=== PATIENT | female | born 1925 | race African-American/Black ===

== ENCOUNTER 2017-04-28 13:37 | Observation (INO) | payer OTHER, BC ==
[2017-04-28 13:58] VITALS: BMI 24.7
--- NOTE | 2017-04-28 15:17 | PDOC ---
History of Present Illness - General History Source: Patient Exam Limitations: No Limitations - History of Present Illness Initial Comments: 04/28/17 16:23 The patient is a 89-year-old female living with son, with a significant past medical history of HTN, diabetes, and hypercholesterolemia, pacemaker, who presents to the ED with one episode of weakness accompanied by a change in speech that occurred today at 1PM. Daughter states that pt was at home with her brother and he noted the pt was slumped over in couch. He tried to get the pt up from the couch but was able to because the pt felt weak. Pts was also noted to be talking slower than usual. Upon examination, daughter states that the pt appears to be at baseline. Pt has experienced similar episodes in the past that resolved. The patient denies any fever, chills, nausea, vomiting, diarrhea, or abdominal pain. Pt denies any headache or change in sensation. Pt denies any shortness of breath or chest pain. Denies any hx of seizures, stroke, or CA. PCP: Dr. Crouch <Michell Hernandez - Last Filed: 04/28/17 16:23> <Yesenia Crespo - Last Filed: 04/29/17 16:55> - General Chief Complaint: Lightheaded Stated Complaint: light headed Time Seen by Provider: 04/28/17 14:31 tPA Exclusion Checklist 0-3hr - Time Elapsed Date last known well: 04/28/17 Time last known well: 13:00 Elaspsed time: 1 Day(s) and 3 Hour(s) and 53 Minutes - Thrombolytic Therapy Candidate Is the patient eligible for Thrombolytic Therapy?: No - Exclusion Criteria 0-3hr SBP greater than 185 or DBP greater than 110mmHg despite tx: No Recent IC/spinal surgery,head trauma or stroke w/in last 3mo: No Hx of previous IC hemorrhage, IC neoplasm, AVM or aneurysm: No Active internal bleeding: No Blding diathesis(low plt ct, inc PTT,INR>1.7 or use of NOAC): No Symptoms suggest subarachnoid hemorrhage: No CT demonstrates multilobar infarct(>1/3 cerebral hemiphere): No Arterial puncture at noncompressible site in previous 7 days: No Blood glucose concentration less than 50mg/dL (2.7mmol/L): No - Relative Exclusion Criteria 0-3h Life expectancy <1yr/severe co-morbid illness/[employer] on admit: No : No Patient/family refused: No Rapid improvement: Yes Stroke severity too mild: Yes Recent acute CA (w/in previous 3 months): No Seizure at onset with postictal residual neuro impairments: No Major surgery or serious trauma w/in previous 14 days: No Recent GI or hemorrhage (w/in previous 21 days): No - Ineligibility reason(s) Reasons No tPA given: See reason(s) noted above (TIA, complete resolution of sxs on initial ED eval.) <Yesenia Crespo - Last Filed: 04/29/17 16:55> NIH Stroke Scale - Last Known Well Date/Time & Onset Date Last Known Well: 04/28/17 Time Last Known Well: 13:00 - Initial Evaluation Level of consciousness: Alert Ask patient the month and their age: Answers both correctly Ask patient to open & close eyes; make fist and let go: Obeys both correctly Best gaze (horizontal eye movement): Normal Visual field testing: No visual field loss Facial paresis (Show teeth/raise eyebrows/close eyes tight): Normal symmetrical movement Motor Function: Left Arm: Normal Motor Function: Right Arm: Normal (extends arm 90 (or 45) degrees for 10 seconds without drift Motor Function: Left Leg: Normal (extends leg 30 degrees for 5 seconds without drift) Motor Function: Right Leg: Normal (extends leg 30 degrees for 5 seconds without drift) Limb Ataxia: No ataxia Sensory(Use pinprick test arms,legs,trunk,face/side to side): Normal Best language (Describe picture, name items, read sentences): No Aphasia Dysarthria (read several words): Normal articulation Extinction and Inattention: No abnormality - Total Score NIH Stroke Scale Score: 0 <Yesenia Crespo - Last Filed: 04/29/17 16:55> Past History <Michell Hernandez - Last Filed: 04/28/17 16:23> - Past Medical History Diabetes: Yes HTN: Yes Hypercholesterolemia: Yes - Surgical History Appendectomy: Yes Cholecystectomy: Yes - Psycho/Social/Smoking Cessation Hx Anxiety: No Suicidal Ideation: No Smoking Status: No Smoking History: Never smoked Have you smoked in the past 12 months: No Number of Cigarettes Smoked Daily: 0 Information on smoking cessation initiated: No Hx Alcohol Use: No Drug/Substance Use Hx: No Substance Use Type: None <NikoleYesenia samuels - Last Filed: 04/29/17 16:55> - Past Medical History Allergies/Adverse Reactions: Allergies Allergy/AdvReac Type Severity Reaction Status Date / Time codeine AdvReac Intermediate Verified 04/28/17 13:53 Home Medications: Ambulatory Orders Alendronate Na [Fosamax] 70 mg PO Q7D 04/28/17 Calcium (Oyster Shell) [Os-Vineet 500Mg -] 500 mg PO BID 04/28/17 Carvedilol 3.125 mg PO BID 04/28/17 Citalopram Hydrobromide [Citalopram HBr] 10 mg PO DAILY 04/28/17 Darifenacin Hydrobromide [Darifenacin ER] 7.5 mg PO DAILY 04/28/17 Donepezil HCl 5 mg PO DAILY 04/28/17 Fluticasone Prop 0.05% Nasal [Flonase -] 1 - 2 spray NS BID 04/28/17 Glipizide [Glipizide ER] 2.5 mg PO DAILY 04/28/17 Haloperidol [Haldol -] 0.5 mg PO BID 04/28/17 Losartan Potassium 50 mg PO DAILY 04/28/17 Metformin HCl [Metformin HCl ER] 1,000 mg PO BID 04/28/17 Multivitamins [Tab-A-Vit -] 1 tab PO DAILY 04/28/17 Nitroglycerin 0.4 mg SL ASDIR 04/28/17 Potassium Chloride [Klor-Con 10] 10 meq PO DAILY 04/28/17 Review of Systems - Review of Systems Able to Perform ROS?: Yes Comments:: 04/28/17 16:24 GENERAL/CONSTITUTIONAL: No fever or chills. +weakness HEAD, EYES, EARS, NOSE AND THROAT: No change in vision. No ear pain or discharge. No sore throat. CARDIOVASCULAR: No chest pain or shortness of breath. RESPIRATORY: No cough, wheezing, or hemoptysis. SKIN: No rash GASTROINTESTINAL: No nausea, vomiting, diarrhea or constipation. GENITOURINARY: No dysuria, frequency, or change in urination. MUSCULOSKELETAL: No joint or muscle swelling or pain. No neck or back pain. NEUROLOGIC: No headache, vertigo, loss of consciousness, or change in strength/ sensation. +change in speech ENDOCRINE: No increased thirst. No abnormal weight change. HEMATOLOGIC/LYMPHATIC: No anemia, easy bleeding, or history of blood clots. ALLERGIC/IMMUNOLOGIC: No hives or skin allergy. <Michell Hernandez - Last Filed: 04/28/17 16:23> *Physical Exam - Vital Signs Last Vital Signs Temp Pulse Resp BP Pulse Ox 97.5 F L 78 18 156/88 100 04/28/17 15:11 04/28/17 13:40 04/28/17 13:40 04/28/17 13:40 04/28/17 13:40 - Physical Exam Comments: 04/28/17 16:25 GENERAL: Awake, alert, and fully oriented, in no acute distress HEAD: No signs of trauma ENT: Auricles normal inspection, hearing grossly normal, nares patent, oropharynx clear EYES: PERRLA, EOMI, sclera anicteric, conjunctiva clear without exudates. Moist mucosa. NECK: Normal ROM, supple, no lymphadenopathy, JVD, or masses LUNGS: Breath sounds equal, clear to auscultation bilaterally. No wheezes, and no crackles HEART: Regular rate and rhythm, normal S1 and S2, no murmurs, rubs or gallops ABDOMEN: Soft, nontender, normoactive bowel sounds. No guarding, no rebound. No masses EXTREMITIES: Normal range of motion, no edema. No clubbing or cyanosis. No cords, erythema, or tenderness NEUROLOGICAL: Cranial nerves II through XII grossly intact. Normal speech. Good strength. Sensation intact. SKIN: Warm, Dry, normal turgor, no rashes or lesions noted <DavidMichell - Last Filed: 04/28/17 16:23> - Vital Signs Last Vital Signs Temp Pulse Resp BP Pulse Ox 95.5 F L 78 18 156/88 100 04/28/17 14:36 04/28/17 13:40 04/28/17 13:40 04/28/17 13:40 04/28/17 13:40 <Yeseina Crespo - Last Filed: 04/29/17 16:55> ED Treatment Course - LABORATORY CBC & Chemistry Diagram: 04/29/17 05:35 04/29/17 05:35 <Yesenia Crespo - Last Filed: 04/29/17 16:55> Medical Decision Making - Medical Decision Making 04/28/17 15:17 89 yo F with h/o DM HTN, pacer, herre with episode of weakness, change to speech. occurred around 1 pm, per pt daughter who provides majority of history, pt lives with her son. was noted to suddently have slumped over in couch, when tried to get her up they couldn't due to pt having weakness. slumpted to left side. noted her speech was changed, and slow. now pt has improved and is at baseline. no prior cva. has had similar episodes in past that resolved. no change to diet, normally walks with a cane. no cp no sob no other complaints. on exam awake, alert, facies symmetric, strength speech clear NIH stroke scale zero. 5/5 all four ext. plan r/o tia, ct head labs ekg nuero eval. 04/28/17 15:46 d/w DR Crouch, pt pcp [phone] who states his partner cal admit her dr. Oliver. no prior known cva tia or seizure. did have recent UTI one month. ago. d/w dr. Oliver, will admit to tel. case d/w dr. Bentley, will see pt in ed. <Yesenia Crespo - Last Filed: 04/29/17 16:55> *DC/Admit/Observation/Transfer - Attestations Scribe Attestion: 04/28/17 16:26 Documentation prepared by Michell Hernandez, acting as medical social worker for Yesenia Crespo MD. <Michell Hernandez - Last Filed: 04/28/17 16:23> - Discharge Dispostion Admit: Yes <Yesenia Crespo - Last Filed: 04/29/17 16:55> Diagnosis at time of Disposition: TIA (transient ischemic attack)
[2017-04-28 17:02] LABS: BASOPHIL 0.3 % (0-2.0); EOSINOPHIL 1.2 % (0-4.5); MCH 29.6 pg (25.7-33.7); MCHC 31.5 g/dl (32.0-36.0); MEAN CELL VOLUME 94.2 fl (80-96); MEAN PLT VOLUME 9.2 fl (7.5-11.1); NEUTROPHILS 79.3 % (42.8-82.8); PLATELET COUNT 257 K/MM3 (134-434); RDW 15.7 % (11.6-15.6); WHITE BLOOD COUNT 14.8 K/mm3 (4.0-10.0)
[2017-04-28 18:00] LABS: INR 0.94 (0.82-1.09); PROTHROMBIN TIME (PATIENT) 10.3 SEC (9.98-11.88)
--- NOTE | 2017-04-28 18:42 | HP ---
Admitting History and Physical - Primary Care Physician PCP: Tee Crouch - Admission Chief Complaint: weakness/near syncope History of Present Illness: Today around 12.30 pt got very weak, kind of slumped over, son tried to get her up, but she was too weak and her speech was slower. No slurred speech, no LOC, no palpitation or chest pain noted. Episode lasted no more than one-one and a half hour. Denies recent cold, infection, fever or chills. History Source: Patient, Family Member Limitations to Obtaining History: No Limitations - Past Medical History PROJECT GEOLOGIST: Yes: Dementia Cardiovascular: Yes: CAD, HTN, Hyperlipdemia Rheumatology: Yes: Other (PMR-was on steroids in past) Endocrine: Yes: Diabetes Mellitus - Past Surgical History Past Surgical History: Yes: CABG (2007), Permanent Pacemaker - Smoking History Smoking history: Never smoked Have you smoked in the past 12 months: No Aproximately how many cigarettes per day: 0 - Alcohol/Substance Use Hx Alcohol Use: No - Social History Usual Living Arrangement: Yes: With Child ADL: Family Assistance History of Recent Travel: No Other Social History: walks with cane or walker. Home Medications - Allergies Allergies/Adverse Reactions: Allergies Allergy/AdvReac Type Severity Reaction Status Date / Time codeine AdvReac Intermediate Verified 04/28/17 13:53 - Home Medications Home Medications: Ambulatory Orders Alendronate Na [Fosamax] 70 mg PO Q7D 04/28/17 Calcium (Oyster Shell) [Os-Vineet 500Mg -] 500 mg PO BID 04/28/17 Carvedilol 3.125 mg PO BID 04/28/17 Citalopram Hydrobromide [Citalopram HBr] 10 mg PO DAILY 04/28/17 Darifenacin Hydrobromide [Darifenacin ER] 7.5 mg PO DAILY 04/28/17 Donepezil HCl 5 mg PO DAILY 04/28/17 Fluticasone Prop 0.05% Nasal [Flonase -] 1 - 2 spray NS BID 04/28/17 Glipizide [Glipizide ER] 2.5 mg PO DAILY 04/28/17 Haloperidol [Haldol -] 0.5 mg PO BID 04/28/17 Losartan Potassium 50 mg PO DAILY 04/28/17 Metformin HCl [Metformin HCl ER] 1,000 mg PO BID 04/28/17 Multivitamins [Tab-A-Vit -] 1 tab PO DAILY 04/28/17 Nitroglycerin 0.4 mg SL ASDIR 04/28/17 Potassium Chloride [Klor-Con 10] 10 meq PO DAILY 04/28/17 Family Disease History - Family Disease History Family Disease History: Heart Disease: Mother Review of Systems Findings/Remarks: no without complaints, feels back to usual. - Review of Systems Constitutional: reports: No Symptoms Eyes: reports: No Symptoms HENT: reports: No Symptoms Neck: reports: No Symptoms Cardiovascular: reports: No Symptoms Respiratory: reports: No Symptoms Gastrointestinal: reports: No Symptoms Genitourinary: reports: No Symptoms Musculoskeletal: reports: No Symptoms Integumentary: reports: No Symptoms Neurological: reports: No Symptoms Endocrine: reports: No Symptoms Hematology/Lymphatic: reports: No Symptoms Psychiatric: reports: No Symptoms Physical Examination Vital Signs: Vital Signs Temperature 97.5 F L 04/28/17 15:11 Pulse Rate 78 04/28/17 13:40 Respiratory Rate 18 04/28/17 13:40 Blood Pressure 156/88 04/28/17 13:40 O2 Sat by Pulse Oximetry (%) 100 04/28/17 13:40 Constitutional: Yes: Well Nourished, Calm Eyes: Yes: EOM Intact HENT: Yes: Normocephalic Neck: Yes: Trachea Midline Cardiovascular: Yes: Regular Rate and Rhythm, Murmur, Other (PPM) Respiratory: Yes: CTA Bilaterally Gastrointestinal: Yes: Normal Bowel Sounds, Soft Musculoskeletal: Yes: WNL Extremities: Yes: WNL Edema: No Peripheral Pulses WNL: Yes Neurological: Yes: WNL Psychiatric: Yes: WNL Labs: CBC WBC 14.8 K/mm3 (4.0-10.0) H D 04/28/17 15:19 RBC 3.99 M/mm3 (3.60-5.2) 04/28/17 15:19 Hgb 11.8 GM/dL (10.7-15.3) 04/28/17 15:19 Hct 37.6 % (32.4-45.2) 04/28/17 15:19 MCV 94.2 fl (80-96) 04/28/17 15:19 MCHC 31.5 g/dl (32.0-36.0) L 04/28/17 15:19 RDW 15.7 % (11.6-15.6) H 04/28/17 15:19 Plt Count 257 K/MM3 (134-434) 04/28/17 15:19 MPV 9.2 fl (7.5-11.1) 04/28/17 15:19 Neutrophils % 79.3 % (42.8-82.8) 04/28/17 15:19 Lymphocytes % 11.5 % (8-40) 04/28/17 15:19 Monocytes % 7.7 % (3.8-10.2) D 04/28/17 15:19 Eosinophils % 1.2 % (0-4.5) 04/28/17 15:19 Basophils % 0.3 % (0-2.0) D 04/28/17 15:19 CMP hemolyzed, needs to be redrawn. Imaging - Results Chest X-ray: Report Reviewed Cat Scan: Report Reviewed Problem List - Problems (1) TIA (transient ischemic attack) Code(s): G45.9 - TRANSIENT CEREBRAL ISCHEMIC ATTACK, UNSPECIFIED (2) Near syncope Code(s): R55 - SYNCOPE AND COLLAPSE (3) CAD (coronary artery disease) Code(s): I25.10 - ATHSCL HEART DISEASE OF [place] CORONARY ARTERY W/O ANG PCTRS (4) Diabetes Code(s): E11.9 - TYPE 2 DIABETES MELLITUS WITHOUT COMPLICATIONS Qualifiers: Diabetes mellitus type: type 2 Assessment/Plan echo carotid telemetry awaiting UA neurology and cardiology evaluation requested
[2017-04-28 18:43] LABS: URINE APPEARANCE CLEAR; URINE BILIRUBIN NEGATIVE (NEGATIVE); URINE BLOOD NEGATIVE (NEGATIVE); URINE COLOR LTYELLOW; URINE GLUCOSE (UA) NEGATIVE (NEGATIVE); URINE KETONE NEGATIVE (NEGATIVE); URINE NITRITE NEGATIVE (NEGATIVE); URINE PROTEIN NEGATIVE (NEGATIVE); URINE UROBILINOGEN NEGATIVE E.U./dl (0.2-1.0)
[2017-04-28 18:51] LABS: URINE LEUK ESTERASE TRACE (NEGATIVE)
[2017-04-28 18:54] LABS: URINE BACTERIA RARE /hpf (NONE SEEN); URINE MUCUS RARE; URINE RBC 4 /hpf (0-3); URINE WBC 2 /hpf (3-5)
[2017-04-28 19:47] LABS: ALBUMIN 3.4 g/dl (3.4-5.0); BILIRUBIN,TOTAL 0.1 mg/dL (0.2-1.0); CALCIUM 8.8 mg/dL (8.5-10.1); COCKROFT - GAULT 29.41; CREATININE 1.3 mg/dL (0.55-1.02); TOT PROT 6.7 g/dl (6.4-8.2)
[2017-04-28] MEDS: CALCIUM (OYSTER SHELL) 500 MG TABLET (FP) PO SCH (22:04)
[2017-04-28] MEDS: CARVEDILOL 3.125 MG TABLET (FP) PO SCH (22:04)
[2017-04-28] MEDS: HALOPERIDOL 0.5 MG TABLET PO SCH (22:04)
[2017-04-29] MEDS: metFORMIN HCL 500 MG TABLET (FP) PO SCH ×2 (06:26→17:23)
[2017-04-29] MEDS: glipiZIDE-XL 2.5 MG TAB.ER.24 PO SCH (06:26)
[2017-04-29 07:14] LABS: BASOPHIL 0.8 % (0-2.0); EOSINOPHIL 3.8 % (0-4.5); MCH 30.3 pg (25.7-33.7); MCHC 32.6 g/dl (32.0-36.0); MEAN CELL VOLUME 92.9 fl (80-96); MEAN PLT VOLUME 8.5 fl (7.5-11.1); NEUTROPHILS 54.4 % (42.8-82.8); PLATELET COUNT 222 K/MM3 (134-434); RDW 15.5 % (11.6-15.6); WHITE BLOOD COUNT 6.5 K/mm3 (4.0-10.0)
[2017-04-29 07:50] LABS: ALBUMIN 3.5 g/dl (3.4-5.0); BILIRUBIN,TOTAL 0.3 mg/dL (0.2-1.0); CALCIUM 9.3 mg/dL (8.5-10.1); COCKROFT - GAULT 30.7615; CREATININE 1.2 mg/dL (0.55-1.02); TOT PROT 6.6 g/dl (6.4-8.2); TROPONIN I 0.06 ng/ml (0.00-0.05)
[2017-04-29] MEDS ORDERED: PT OWN MED DRAWER 7, Y5N ONE ×2 (08:54→20:57)
[2017-04-29] MEDS: MULTIVITAMINS (DAILY MVI) TABLET (FP) PO SCH (09:07)
[2017-04-29] MEDS: CARVEDILOL 3.125 MG TABLET (FP) PO SCH ×2 (09:07→21:03)
[2017-04-29] MEDS: DONEPEZIL HCL 5 MG TABLET (FP) PO SCH (09:07)
[2017-04-29] MEDS: CITALOPRAM HYDROBROMIDE 10 MG TABLET (FP) PO SCH (09:07)
[2017-04-29] MEDS: LOSARTAN POTASSIUM 50 MG TABLET (FP) PO SCH (09:07)
[2017-04-29] MEDS: POTASSIUM CHLORIDE TABS 10 MEQ TABLET.ER (FP) PO SCH (09:07)
[2017-04-29] MEDS: CALCIUM (OYSTER SHELL) 500 MG TABLET (FP) PO SCH ×2 (09:07→21:03)
[2017-04-29] MEDS: HALOPERIDOL 0.5 MG TABLET PO SCH ×2 (09:08→21:03)
--- NOTE | 2017-04-29 10:10 | CON.CARD ---
Consult Consult Specialty:: Cardiology Referred by:: Litzy Mohamud Reason for Consultation:: Near syncope - History of Present Illness Chief Complaint: Near syncope History of Present Illness: 89 yo patient h/o CAD s/p CABG, HTN, chol, PMR, DM, diastolic dysfunction, sick sinus syndrome s/p [employer] PPM, dementia admitted for weakness, near but not true syncope with slow speech and diaphoresis, but not overt dysarthria, denies chest pain, dyspnea, flushing, palpitations, orthopnea, PND or LE edema, ordinarily ambulates with cane assistance, sxs improved with lying down. Has not had pacer checked within last year. - History Source History Provided By: Patient Limitations to Obtaining History: No Limitations - Past Medical History [employer] INST[employer]ER: Yes: Dementia Cardio/Vascular: Yes: CAD, HTN, Hyperlipdemia Rheumatology: Yes: Other (PMR-was on steroids in past) Endocrine: Yes: Diabetes Mellitus - Past Surgical History Past Surgical History: Yes: CABG (2007), Permanent Pacemaker - Alcohol/Substance Use Hx Alcohol Use: No - Smoking History Smoking history: Never smoked Have you smoked in the past 12 months: No Aproximately how many cigarettes per day: 0 - Social History ADL: Family Assistance History of Recent Travel: No Home Medications - Allergies Allergies/Adverse Reactions: Allergies Allergy/AdvReac Type Severity Reaction Status Date / Time codeine AdvReac Intermediate Verified 04/28/17 13:53 - Home Medications Home Medications: Ambulatory Orders Alendronate Na [Fosamax] 70 mg PO Q7D 04/28/17 Calcium (Oyster Shell) [Os-Vineet 500Mg -] 500 mg PO BID 04/28/17 Carvedilol 3.125 mg PO BID 04/28/17 Citalopram Hydrobromide [Citalopram HBr] 10 mg PO DAILY 04/28/17 Darifenacin Hydrobromide [Darifenacin ER] 7.5 mg PO DAILY 04/28/17 Donepezil HCl 5 mg PO DAILY 04/28/17 Fluticasone Prop 0.05% Nasal [Flonase -] 1 - 2 spray NS BID 04/28/17 Glipizide [Glipizide ER] 2.5 mg PO DAILY 04/28/17 Haloperidol [Haldol -] 0.5 mg PO BID 04/28/17 Losartan Potassium 50 mg PO DAILY 04/28/17 Metformin HCl [Metformin HCl ER] 1,000 mg PO BID 04/28/17 Multivitamins [Tab-A-Vit -] 1 tab PO DAILY 04/28/17 Nitroglycerin 0.4 mg SL ASDIR 04/28/17 Potassium Chloride [Klor-Con 10] 10 meq PO DAILY 04/28/17 Family Disease History - Family Disease History Family Disease History: Heart Disease: Mother Review of Systems - Review of Systems Neurological: reports: Dizziness, Weakness Vital Signs: Vital Signs Temperature 98.1 F 04/29/17 06:18 Pulse Rate 70 04/29/17 06:18 Respiratory Rate 18 04/29/17 06:18 Blood Pressure 138/76 04/29/17 06:18 O2 Sat by Pulse Oximetry (%) 99 04/28/17 19:15 Constitutional: Yes: No Distress, Calm Neck: Yes: Supple Respiratory: Yes: Regular, Diminished Gastrointestinal: Yes: Normal Bowel Sounds, Soft Cardiovascular: Yes: Regular Rate and Rhythm JVD: No Carotid Bruit: No Heart Sounds: Yes: S1, S2 Murmur: Yes: Systolic Murmur, Grade 2 Edema: No - Other Data Labs, Other Data: CBC, BMP 04/29/17 05:35 04/29/17 05:35 INR, PTT INR 0.94 (0.82-1.09) 04/28/17 15:19 Troponin, BNP 04/29/17 05:35 Troponin I 0.06 H Troponin, BNP 04/29/17 05:35 Troponin I 0.06 H A-V pacing in 60s Ejection Fraction %: LVEF > or = 40 % Imaging - Results Chest X-ray: Report Reviewed (NAD) Cat Scan: Report Reviewed (HCT: No acute changes) Problem List - Problems (1) CAD (coronary artery disease) Code(s): I25.10 - ATHSCL HEART DISEASE OF [place] CORONARY ARTERY W/O ANG PCTRS Qualifiers: Coronary Disease-Associated Artery/Lesion type: [place] artery [place] vs. transplanted heart: [place] heart Associated angina: without angina Qualified Code(s): I25.10 - Atherosclerotic heart disease of [place] coronary artery without angina pectoris (2) Diabetes Code(s): E11.9 - TYPE 2 DIABETES MELLITUS WITHOUT COMPLICATIONS Qualifiers: Diabetes mellitus type: type 2 (3) Near syncope Code(s): R55 - SYNCOPE AND COLLAPSE (4) Hypertensive cardiomyopathy Code(s): I11.9 - HYPERTENSIVE HEART DISEASE WITHOUT HEART FAILURE I43 - CARDIOMYOPATHY IN DISEASES CLASSIFIED ELSEWHERE Qualifiers: Heart failure presence: without heart failure Qualified Code(s): I11.9 - Hypertensive heart disease without heart failure; I43 - Cardiomyopathy in diseases classified elsewhere (5) S/P CABG (coronary artery bypass graft) Code(s): Z95.1 - PRESENCE OF AORTOCORONARY BYPASS GRAFT (6) Diastolic dysfunction without heart failure Code(s): I51.9 - HEART DISEASE, UNSPECIFIED (7) SSS (sick sinus syndrome) Code(s): I49.5 - SICK SINUS SYNDROME (8) Status cardiac pacemaker Code(s): Z95.0 - PRESENCE OF CARDIAC PACEMAKER Assessment/Plan 03/16/2013 Echo: mod cLVH, normal biventricular size and fxn with mild MR, TR, AR 11/24/2012 LHC: 3 vessel CAD with patent SIM->LAD, SVG->RPDA, SVG->dLCx 1. Near syncope since resolved 2. CAD s/p CABG, angina pectoris 3. Diastolic dysfunction 4. HTN/HCVD 5. Type 2 DM 6. Dementia 7. sss s/p PPM has not been interrogated > 1 year 8. Hyperlipidemia 9. CKD 10. H/o PMR P:1. Interrogate pacer, f/u echo and carotid u/s, lipid panel and TSH 2. Continue carvedilol 3.125 bid and losartan 50 qd with uptitration as tolerated, trial of Crestor 5 qhs (01/08 LDL 115) 3. Thank you for consultative opportunity, educated on abortive maneuvers once prodromal sxs are experienced 4. Patient to f/u with Dr. Nilesh Tobar in office upon d/c
--- NOTE | 2017-04-29 10:33 | EKG ---
Test Reason : Blood Pressure : / mmHG Vent. Rate : 063 BPM Atrial Rate : 063 BPM P-R Int : 000 ms QRS Dur : 090 ms QT Int : 442 ms P-R-T Axes : 000 029 107 degrees QTc Int : 452 ms Atrial-paced rhythm LEFT VENTRICULAR HYPERTROPHY WITH REPOLARIZATION ABNORMALITY CANNOT RULE OUT SEPTAL INFARCT , AGE UNDETERMINED ABNORMAL ECG NO PREVIOUS ECGS AVAILABLE Confirmed by BRANDO JACKSON MD ([id number]) on 04/29/2017 10:32:53 AM Referred By: Confirmed By:BRANDO JACKSON MD
--- NOTE | 2017-04-29 11:02 | PN ---
Progress Note (short form) - Note Progress Note: No further complaints, uneventful evening. CBC, BMP 04/29/17 05:35 04/29/17 05:35 S1S2 RRR telemetry paced lungs cta abd soft NT no focal deficits Imp near syncopal event, doubt TIA on citalopram/haldol and aricept will d/w daughter consider decreasing, stopping haldol awaiting echo and carotid US dc planning if unremarkable cardiology consult appreciated awaiting neuro eval Problem List - Problems (1) TIA (transient ischemic attack) Code(s): G45.9 - TRANSIENT CEREBRAL ISCHEMIC ATTACK, UNSPECIFIED (2) Near syncope Code(s): R55 - SYNCOPE AND COLLAPSE (3) CAD (coronary artery disease) Code(s): I25.10 - ATHSCL HEART DISEASE OF [place] CORONARY ARTERY W/O ANG PCTRS (4) Diabetes Code(s): E11.9 - TYPE 2 DIABETES MELLITUS WITHOUT COMPLICATIONS Qualifiers: Diabetes mellitus type: type 2
[2017-04-29 11:45] LABS: THYROID STIMULATING HORMONE 9.37 uIU/ml (0.358-3.74)
[2017-04-29 14:31] LABS: TROPONIN I 0.06 ng/ml (0.00-0.05)
--- NOTE | 2017-04-29 16:23 | PDOC ---
tPA Exclusion Checklist 0-3hr - Time Elapsed Date last known well: 04/28/17 Time last known well: 13:00 Elaspsed time: 1 Day(s) and 3 Hour(s) and 20 Minutes - Thrombolytic Therapy Candidate Is the patient eligible for Thrombolytic Therapy?: No - Exclusion Criteria 0-3hr SBP greater than 185 or DBP greater than 110mmHg despite tx: No Recent IC/spinal surgery,head trauma or stroke w/in last 3mo: No Hx of previous IC hemorrhage, IC neoplasm, AVM or aneurysm: No Active internal bleeding: No Blding diathesis(low plt ct, inc PTT,INR>1.7 or use of NOAC): No Symptoms suggest subarachnoid hemorrhage: No CT demonstrates multilobar infarct(>1/3 cerebral hemiphere): No Arterial puncture at noncompressible site in previous 7 days: No Blood glucose concentration less than 50mg/dL (2.7mmol/L): No - Relative Exclusion Criteria 0-3h : No Patient/family refused: No Rapid improvement: Yes Stroke severity too mild: Yes Seizure at onset with postictal residual neuro impairments: No Major surgery or serious trauma w/in previous 14 days: No Recent GI or hemorrhage (w/in previous 21 days): No - Ineligibility reason(s) Reasons No tPA given: See reason(s) noted above (TIA, complete resolution of sxs on arrival to ed. )
--- NOTE | 2017-04-29 16:28 | PDOC ---
NIH Stroke Scale - Last Known Well Date/Time & Onset Date Last Known Well: 04/28/17 Time Last Known Well: 13:00 - Initial Evaluation Level of consciousness: Alert Ask patient the month and their age: Answers both correctly Ask patient to open & close eyes; make fist and let go: Obeys both correctly Best gaze (horizontal eye movement): Normal Visual field testing: No visual field loss Facial paresis (Show teeth/raise eyebrows/close eyes tight): Normal symmetrical movement Motor Function: Left Arm: Normal Motor Function: Right Arm: Normal (extends arm 90 (or 45) degrees for 10 seconds without drift Motor Function: Left Leg: Normal (extends leg 30 degrees for 5 seconds without drift) Motor Function: Right Leg: Normal (extends leg 30 degrees for 5 seconds without drift) Limb Ataxia: No ataxia Sensory(Use pinprick test arms,legs,trunk,face/side to side): Normal Best language (Describe picture, name items, read sentences): No Aphasia Dysarthria (read several words): Normal articulation Extinction and Inattention: No abnormality (entered for visit 04/28/17, initial evaluation as addendum to ED note) - Total Score NIH Stroke Scale Score: 0
[2017-04-29] MEDS: ASPIRIN 81 MG CHEWABLE TABLETS PO SCH (17:23)
[2017-04-29] MEDS ORDERED: ROSUVASTATIN CA 5 MG TABLET (FP) PO SCH (22:00)
[2017-04-30] MEDS: metFORMIN HCL 500 MG TABLET (FP) PO SCH (07:00)
[2017-04-30] MEDS: glipiZIDE-XL 2.5 MG TAB.ER.24 PO SCH (07:01)
--- NOTE | 2017-04-30 09:12 | DS ---
Physical Examination Vital Signs: Vital Signs Temperature 98 F 04/30/17 06:00 Pulse Rate 66 04/30/17 06:00 Respiratory Rate 20 04/30/17 06:00 Blood Pressure 148/79 04/30/17 06:00 O2 Sat by Pulse Oximetry (%) 94 L 04/29/17 21:00 Findings/Remarks: no complaints Constitutional: Yes: No Distress Eyes: Yes: Conjunctiva Clear HENT: Yes: Normocephalic Neck: Yes: Trachea Midline Cardiovascular: Yes: Regular Rate and Rhythm Respiratory: Yes: CTA Bilaterally Gastrointestinal: Yes: Normal Bowel Sounds, Soft Edema: No Peripheral Pulses WNL: Yes Neurological: Yes: WNL, Unsteady Gait Labs: CBC, BMP 04/29/17 05:35 04/29/17 05:35 Discharge Summary Reason For Visit: TRANSIENT CEREBRAL ISCHEMIA Current Active Problems CAD (coronary artery disease) (Acute) Diabetes (Acute) Diastolic dysfunction without heart failure (Acute) Hypertensive cardiomyopathy (Acute) Near syncope (Acute) S/P CABG (coronary artery bypass graft) (Acute) SSS (sick sinus syndrome) (Acute) Status cardiac pacemaker (Acute) TIA (transient ischemic attack) (Acute) Hospital Course: admitted for near-syncopal episode head CT was within normal echo was unremarkable medtronic pacemaker interrogation was unremarkable carotid US showed 60-79% left ica stenosis. TSH was 9, lip[ids were slightly elevated. started low dose synthroid, ASA and station for secondary prevention. clinically she is well, at baseline, medically stable to wa home with VNS and family supervision. should follow up with in 1 week. Condition: Fair - Instructions Diet, Activity, Other Instructions: f/up with in 1 week repeat TSH, lipids in 2 months Disposition: VNS/HOME HEALTH CARE - Home Medications Comprehensive Discharge Medication List: Ambulatory Orders Calcium (Oyster Shell) [Os-Vineet 500MG -] 500 mg PO BID 04/28/17 Carvedilol 3.125 mg PO BID 04/28/17 Citalopram Hydrobromide [Citalopram HBr] 10 mg PO DAILY 04/28/17 Darifenacin Hydrobromide [Darifenacin ER] 7.5 mg PO DAILY 04/28/17 Donepezil HCl 5 mg PO DAILY 04/28/17 Fluticasone Prop 0.05% Nasal [Flonase -] 1 - 2 spray NS BID 04/28/17 Glipizide [Glipizide ER] 2.5 mg PO DAILY 04/28/17 Haloperidol [Haldol -] 0.5 mg PO BID 04/28/17 Losartan Potassium 50 mg PO DAILY 04/28/17 Metformin HCl [Metformin HCl ER] 1,000 mg PO BID 04/28/17 Multivitamins [Multivit ([facility] Formulary)] 1 tab PO DAILY 04/28/17 Nitroglycerin 0.4 mg SL ASDIR 04/28/17 Potassium Chloride [Klor-Con 10] 10 meq PO DAILY 04/28/17 Aspirin [ASA -] 81 mg PO DAILY tab.chew 04/30/17 Levothyroxine [Synthroid -] 25 mcg PO DAILY #30 tablet 04/30/17 Rosuvastatin [Crestor -] 5 mg PO HS #30 tablet 04/30/17
[2017-04-30 09:27] VITALS: BP 156/74; PULSE 63; TEMP 97.4
[2017-04-30] MEDS: LOSARTAN POTASSIUM 50 MG TABLET (FP) PO SCH (09:28)
[2017-04-30] MEDS: DONEPEZIL HCL 5 MG TABLET (FP) PO SCH (09:28)
[2017-04-30] MEDS: CARVEDILOL 3.125 MG TABLET (FP) PO SCH (09:28)
[2017-04-30] MEDS: CITALOPRAM HYDROBROMIDE 10 MG TABLET (FP) PO SCH (09:28)
[2017-04-30] MEDS: ASPIRIN 81 MG CHEWABLE TABLETS PO SCH (09:28)
[2017-04-30] MEDS: CALCIUM (OYSTER SHELL) 500 MG TABLET (FP) PO SCH (09:29)
[2017-04-30] MEDS: HALOPERIDOL 0.5 MG TABLET PO SCH (09:29)
[2017-04-30] MEDS: POTASSIUM CHLORIDE TABS 10 MEQ TABLET.ER (FP) PO SCH (09:29)
[2017-04-30] MEDS: MULTIVITAMINS (DAILY MVI) TABLET (FP) PO SCH (09:29)
--- NOTE | 2017-04-30 11:10 | CONSULT ---
Consult - text type - Consultation Consultation Note: Neurology History of Present Illness 89-year-old female living with son, with a significant past medical history of HTN, diabetes, and hypercholesterolemia, pacemaker, who presented to the ED with an episode of weakness accompanied by a change in speech that occurred today at 1PM. Reportedly, she was at home with her brother and he noted the pt was slumped over in couch. He tried to get the pt up from the couch but was able to because the pt felt weak. Pts was also noted to be talking slower than usual. Upon examination, daughter states that the pt appears to be at baseline. Pt has experienced similar episodes in the past that resolved. Patient underwent extensive work up and initially other neurologist called but PCP asked me to see patient to expedite discharge. Patient neurologically stable during my evaluation. No deficits. Past History - Past Medical History Diabetes: Yes HTN: Yes Hypercholesterolemia: Yes - Surgical History Appendectomy: Yes Cholecystectomy: Yes - Psycho/Social/Smoking Cessation Hx Anxiety: No Suicidal Ideation: No Smoking Status: No Smoking History: Never smoked Have you smoked in the past 12 months: No Number of Cigarettes Smoked Daily: 0 Information on smoking cessation initiated: No Hx Alcohol Use: No Drug/Substance Use Hx: No Substance Use Type: None - Past Medical History Allergies/Adverse Reactions: Allergies Allergy/AdvReac Type Severity Reaction Status Date / Time codeine AdvReac Intermediate Verified 04/28/17 13:53 Home Medications: Ambulatory Orders Alendronate Na [Fosamax] 70 mg PO Q7D 04/28/17 Calcium (Oyster Shell) [Os-Vineet 500Mg -] 500 mg PO BID 04/28/17 Carvedilol 3.125 mg PO BID 04/28/17 Citalopram Hydrobromide [Citalopram HBr] 10 mg PO DAILY 04/28/17 Darifenacin Hydrobromide [Darifenacin ER] 7.5 mg PO DAILY 04/28/17 Donepezil HCl 5 mg PO DAILY 04/28/17 Fluticasone Prop 0.05% Nasal [Flonase -] 1 - 2 spray NS BID 04/28/17 Glipizide [Glipizide ER] 2.5 mg PO DAILY 04/28/17 Haloperidol [Haldol -] 0.5 mg PO BID 04/28/17 Losartan Potassium 50 mg PO DAILY 04/28/17 Metformin HCl [Metformin HCl ER] 1,000 mg PO BID 04/28/17 Multivitamins [Tab-A-Vit -] 1 tab PO DAILY 04/28/17 Nitroglycerin 0.4 mg SL ASDIR 04/28/17 Potassium Chloride [Klor-Con 10] 10 meq PO DAILY 04/28/17 Review of Systems 04/28/17 16:24 GENERAL/CONSTITUTIONAL: No fever or chills. +weakness HEAD, EYES, EARS, NOSE AND THROAT: No change in vision. No ear pain or discharge. No sore throat. CARDIOVASCULAR: No chest pain or shortness of breath. RESPIRATORY: No cough, wheezing, or hemoptysis. SKIN: No rash GASTROINTESTINAL: No nausea, vomiting, diarrhea or constipation. GENITOURINARY: No dysuria, frequency, or change in urination. MUSCULOSKELETAL: No joint or muscle swelling or pain. No neck or back pain. NEUROLOGIC: No headache, vertigo, loss of consciousness, or change in strength/ sensation. +change in speech ENDOCRINE: No increased thirst. No abnormal weight change. HEMATOLOGIC/LYMPHATIC: No anemia, easy bleeding, or history of blood clots. ALLERGIC/IMMUNOLOGIC: No hives or skin allergy. *Physical Exam Vital Signs Temperature 97.4 F L 04/30/17 09:26 Pulse Rate 63 04/30/17 09:26 Respiratory Rate 18 04/30/17 09:26 Blood Pressure 156/74 04/30/17 09:26 O2 Sat by Pulse Oximetry (%) 94 L 04/30/17 05:00 GENERAL: Awake, alert, and fully oriented, in no acute distress HEAD: No signs of trauma ENT: Auricles normal inspection, hearing grossly normal, nares patent, oropharynx clear EYES: PERRLA, EOMI, sclera anicteric, conjunctiva clear without exudates. Moist mucosa. NECK: Normal ROM, supple, no lymphadenopathy, JVD, or masses LUNGS: Breath sounds equal, clear to auscultation bilaterally. No wheezes, and no crackles HEART: Regular rate and rhythm, normal S1 and S2, no murmurs, rubs or gallops ABDOMEN: Soft, nontender, normoactive bowel sounds. No guarding, no rebound. No masses EXTREMITIES: Normal range of motion, no edema. No clubbing or cyanosis. No cords, erythema, or tenderness NEUROLOGICAL: Cranial nerves II through XII grossly intact. Normal speech. Good strength. Sensation intact. SKIN: Warm, Dry, normal turgor, no rashes or lesions noted CBCD WBC 6.5 K/mm3 (4.0-10.0) D 04/29/17 05:35 RBC 3.90 M/mm3 (3.60-5.2) 04/29/17 05:35 Hgb 11.8 GM/dL (10.7-15.3) 04/29/17 05:35 Hct 36.3 % (32.4-45.2) 04/29/17 05:35 MCV 92.9 fl (80-96) 04/29/17 05:35 MCHC 32.6 g/dl (32.0-36.0) 04/29/17 05:35 RDW 15.5 % (11.6-15.6) 04/29/17 05:35 Plt Count 222 K/MM3 (134-434) 04/29/17 05:35 MPV 8.5 fl (7.5-11.1) 04/29/17 05:35 CMP Sodium 141 mmol/L (136-145) 04/29/17 05:35 Potassium 4.3 mmol/L (3.5-5.1) 04/29/17 05:35 Chloride 106 mmol/L (98-107) 04/29/17 05:35 Carbon Dioxide 26 mmol/L (21-32) 04/29/17 05:35 Anion Gap 9 (8-16) 04/29/17 05:35 BUN 26 mg/dL (7-18) H 04/29/17 05:35 Creatinine 1.2 mg/dL (0.55-1.02) H 04/29/17 05:35 Creat Clearance w eGFR 42.30 (>60) 04/29/17 05:35 Calcium 9.3 mg/dL (8.5-10.1) 04/29/17 05:35 Total Bilirubin 0.3 mg/dL (0.2-1.0) D 04/29/17 05:35 AST 22 U/L (15-37) 04/29/17 05:35 ALT 21 U/L (12-78) 04/29/17 05:35 Alkaline Phosphatase 60 U/L (45-117) 04/29/17 05:35 Total Protein 6.6 g/dl (6.4-8.2) 04/29/17 05:35 Albumin 3.5 g/dl (3.4-5.0) 04/29/17 05:35 Medical Decision Making 89-year-old female living with son, with a significant past medical history of HTN, diabetes, and hypercholesterolemia, pacemaker, who presented to the ED with an episode of weakness accompanied by a change in speech that occurred today at 1PM. Reportedly, she was at home with her brother and he noted the pt was slumped over in couch. Patient underwent extensive work up and initially other neurologist called but PCP asked me to see patient to expedite discharge. Patient neurologically stable during my evaluation. No deficits. CT head negative. Cardiology on case, completed CD and Echo. Patient for discharge and neurologically at baseline.
== END 2017-04-30 12:45 | disposition home health service (06) ==
LOC: JER 13:37 → UNDOADMOB 15:48 → INTOOBSV 15:48 → JERBED 15:48 → J4S 19:30
PROVIDERS: ADMIT Internal Medicine; ATTEND Internal Medicine
DX: G45.9 Transient cerebral ischemic attack, unspecified (principal); R55 Syncope and collapse; I25.10 Atherosclerotic heart disease of native coronary artery without angina pectoris; I11.9 Hypertensive heart disease without heart failure; I43 Cardiomyopathy in diseases classified elsewhere; I49.5 Sick sinus syndrome; E11.9 Type 2 diabetes mellitus without complications; Z79.84 Long term (current) use of oral hypoglycemic drugs; E78.00 Pure hypercholesterolemia, unspecified; Z95.0 Presence of cardiac pacemaker; Z95.1 Presence of aortocoronary bypass graft
CPT/HCPCS: 36415; 70450-TC; 71010-TC; 80053; 80061; 81003; 81015; 82550; 82553; 83721; 84443; 84484; 85025; 85610; 93005; 93010; 93306-TC; 93880-TC; 99285-25; G0378

== ENCOUNTER 2017-07-04 06:01 | Inpatient (IN) | payer OTHER, BC ==
--- NOTE | 2017-07-04 06:20 | PDOC ---
History of Present Illness - General Stated Complaint: AMS Time Seen by Provider: 07/04/17 06:12 History Source: Patient, EMS Exam Limitations: Dementia - History of Present Illness Initial Comments: This is an 89 yo female with h/o dementia, CAD s/p CABG, sick sinus syndrome s/ p Medtronic pacemaker placement (interrogated on 04/29/17 with normal function), DM, HTN, HLD, and TIA (seen in [facility] ED on 04/28/17) who presents BIBA after being found down outside at [address] [place] [address] by elisa, which is a 9-minute walk from her [facility] EMR-reported residence. The patient was unsure of her own phone number or address, and could not remember leaving the house or any of the events leading up to being found. EMS reports that she was laying on her side on the sidewalk and did not seem to be in distress. Her face and knees had abrasions with dried blood. They also noted blood in her mouth. The patient herself states that she lives with one of her daughters. The daughter arrives in the ED and states that this is far outside of the patient's normal baseline, but her mental status has slowly been worsening over the past few months. The family and patient just returned from a trip to [facility] on Wednesday, but the patient has been feeling well the past month. Past History - Past Medical History Allergies/Adverse Reactions: Allergies Allergy/AdvReac Type Severity Reaction Status Date / Time No Known Drug Allergies Allergy Verified 07/04/17 17:38 codeine AdvReac Intermediate Nausea Verified 07/04/17 16:08 Home Medications: Ambulatory Orders Calcium (Oyster Shell) [Os-Vineet 500MG -] 500 mg PO BID 04/28/17 Carvedilol 3.125 mg PO BID 04/28/17 Citalopram Hydrobromide [Citalopram HBr] 20 mg PO DAILY 04/28/17 Darifenacin Hydrobromide [Darifenacin ER] 7.5 mg PO DAILY 04/28/17 Donepezil HCl 5 mg PO DAILY 04/28/17 Fluticasone Prop 0.05% Nasal [Flonase -] 1 - 2 spray NS BID 04/28/17 Glipizide [Glipizide ER] 2.5 mg PO DAILY 04/28/17 Haloperidol [Haldol -] 0.5 mg PO BID 04/28/17 Losartan Potassium 50 mg PO DAILY 04/28/17 Metformin HCl [Metformin HCl ER] 1,000 mg PO BID 04/28/17 Multivitamins [Multivit ([facility] Formulary)] 1 tab PO DAILY 04/28/17 Nitroglycerin 0.4 mg SL ASDIR 04/28/17 Aspirin [ASA -] 81 mg PO DAILY tab.chew 04/30/17 Levothyroxine [Synthroid -] 25 mcg PO DAILY #30 tablet 04/30/17 Diabetes: Yes HTN: Yes Hypercholesterolemia: Yes - Surgical History Appendectomy: Yes Cardiac Surgery: Yes (pacemaker, cabg) Cholecystectomy: Yes - Psycho/Social/Smoking Cessation Hx Anxiety: No Suicidal Ideation: No Smoking Status: No Smoking History: Never smoked Have you smoked in the past 12 months: No Number of Cigarettes Smoked Daily: 0 Hx Alcohol Use: No Drug/Substance Use Hx: No Substance Use Type: None Review of Systems - Review of Systems Able to Perform ROS?: No (dementia) *Physical Exam - Physical Exam General Appearance: Yes: Nourished, Other (very pleasant elderly woman, pleasantly confused, conversive). No: Apparent Distress HEENT: positive: EOMI, BOB, Normal Voice, Hearing Grossly Normal, Other (no hernandez sign, no raccoon eyes, no nasal septal hematoma, no hemotympanum, small amount of blood in the oropharynx and one superficial 1 cm transverse laceration to the midline lower inner lip musoca at the level of the gingival line). negative: Scleral Icterus (R), Scleral Icterus (L), Nasal Congestion Neck: positive: Trachea midline, Supple. negative: Tender, Rigid Respiratory/Chest: positive: Lungs Clear, Normal Breath Sounds. negative: Respiratory Distress, Crackles, Rhonchi, Stridor, Wheezing Cardiovascular: positive: Regular Rhythm, Regular Rate. negative: Murmur Gastrointestinal/Abdominal: positive: Normal Bowel Sounds, Soft. negative: Tender, Organomegaly, Pulsatile Mass, Guarding Musculoskeletal: positive: Normal Inspection. negative: Decreased Range of Motion, Vertebral Tenderness Extremity: positive: Normal Capillary Refill, Normal Inspection, Normal Range of Motion, Other (superficial abrasions overlying bilateral tibial tuberosities without tenderness to palpation, knee effusions, or bony deformities). negative : Tender, Cyanosis Integumentary: positive: Normal Color, Dry, Warm. negative: Erythema, Rash, Bruising Neurologic: positive: conservation technician II-XII NML intact, Alert, Normal Mood/Affect, Normal Response, Motor Strength 5/5, Finger to Nose (normal), Confused, Other ( oriented to self and date, also oriented to place, but unable to state age , year, or month). negative: Sensory Deficit ED Treatment Course - LABORATORY CBC & Chemistry Diagram: 07/06/17 06:00 07/06/17 06:00 Medical Decision Making - Medical Decision Making 89 yo female with h/o dementia, CAD s/p CABG, pacemaker use, DM, and TIA who was BIBA after being found down and confused outside. Her daughter arrives shortly after EMS brings the patient to the ED and explains that for several months her mental status has been declining. However the daughter notes this incident is still far outside her baseline. She notes that the patient has been generally well-appearing. The patient herself is unable to provide any history of this morning's events. She notes only pain to the right knee. C-collar is donned. Ordered is CT head and neck, UA with cx, CBCD, CMP, INR. All laboratories are nondirective. The patient is signed out to the oncoming team pending CT results. *DC/Admit/Observation/Transfer Diagnosis at time of Disposition: Altered mental state Qualifiers: Altered mental status type: unspecified Qualified Code(s): R41.82 - Altered mental status, unspecified - Attestations Physician Attestion: I, Dr. Kiesha Mcrae, attest that this document has been prepared under my direction and personally reviewed by me in its entirety. I further attest, that it accurately reflects all work, treatment, procedures and medical decision -making performed by me.
--- NOTE | 2017-07-04 06:29 | PDOC ---
Attending Attestation - Resident Resident Name: Kiesha Mcrae - HPI HPI: 07/04/17 06:53 Pt sound wandering in her neighborhood; confused. Aware of name and ; we found her demographic info in the computer and called her daughter who is here at bedside. Pt never wandered off before, but she is confused at times. Pt walks with walker and she went out of home with no walker. Here she has cuts to face. and small abrasions on her knees bilat. - Physicial Exam PE: 07/04/17 06:54 knee abrasions. 1.25cm cit to inner lower lip. Dentures (bottom ones in top ones at home) Facial abrasions to nose and chin and forehead Rest of exam normal. Agree with resident exam. - Medical Decision Making 07/04/17 06:56 CT head and c-spine. CXR and EKG. Labs basic. Sign out to AM doctor
[2017-07-04] MEDS ORDERED: SODIUM CHLORIDE 0.9% 500 ML INFUS.BAG IV ONE (06:56)
[2017-07-04 06:59] LABS: BASOPHIL 0.5 % (0-2.0); EOSINOPHIL 2.5 % (0-4.5); MCHC 32.7 g/dl (32.0-36.0); MEAN CELL VOLUME 97.8 fl (80-96); MEAN PLT VOLUME 7.9 fl (7.5-11.1); NEUTROPHILS 77.1 % (42.8-82.8); PLATELET COUNT 291 K/MM3 (134-434); RDW 15.5 % (11.6-15.6); WHITE BLOOD COUNT 8.1 K/mm3 (4.0-10.0)
[2017-07-04 07:14] LABS: INR 0.96 (0.82-1.09); PROTHROMBIN TIME (PATIENT) 10.6 SEC (9.98-11.88)
[2017-07-04 07:25] LABS: ALBUMIN 3.7 g/dl (3.4-5.0); ALK PHOS 62 U/L (45-117); ANION GAP 7 (8-16); BILIRUBIN,TOTAL 0.2 mg/dL (0.2-1.0); CALCIUM 9.2 mg/dL (8.5-10.1); CO2 27 mmol/L (21-32); CREATININE 1.4 mg/dL (0.55-1.02); GLUCOSE,RANDOM 144 mg/dL (74-106); SGOT/AST 24 U/L (15-37); SGPT/ALT 25 U/L (12-78)
[2017-07-04 08:45] LABS: URINE APPEARANCE CLEAR; URINE BILIRUBIN NEGATIVE (NEGATIVE); URINE BLOOD TRACE-LYSE (NEGATIVE); URINE COLOR LT. YELLOW; URINE GLUCOSE (UA) NEGATIVE (NEGATIVE); URINE KETONE NEGATIVE (NEGATIVE); URINE LEUK ESTERASE NEGATIVE (NEGATIVE); URINE NITRITE NEGATIVE (NEGATIVE); URINE UROBILINOGEN 0.2 mg/dL (0.2-1.0)
[2017-07-04 08:48] LABS: URINE PROTEIN 2+ (NEGATIVE)
[2017-07-04 08:50] LABS: URINE HYALINE CAST 1 /lpf; URINE MUCUS RARE; URINE RBC 1 /hpf (0-3); URINE WBC 1 /hpf (3-5)
--- NOTE | 2017-07-04 08:58 | PDOC ---
*Physical Exam - Vital Signs Last Vital Signs Temp Pulse Resp BP Pulse Ox 98.2 F 83 20 175/83 98 07/04/17 06:20 07/04/17 06:20 07/04/17 06:20 07/04/17 06:20 07/04/17 06:20 - Physical Exam General Appearance: Yes: Nourished, Appropriately Dressed HEENT: positive: EOMI, BOB, Normal ENT Inspection Neck: positive: Trachea midline. negative: Tender Respiratory/Chest: negative: Chest Tender ED Treatment Course - LABORATORY CBC & Chemistry Diagram: 07/04/17 06:42 07/04/17 06:42 - ADDITIONAL ORDERS Additional order review: Laboratory Results 07/04/17 07/04/17 07/04/17 07:20 06:42 06:42 INR 0.96 Sodium 138 Potassium 4.1 Chloride 104 Carbon Dioxide 27 Anion Gap 7 L BUN 22 H Creatinine 1.4 H Creat Clearance w eGFR 35.41 Random Glucose 144 H D Calcium 9.2 Total Bilirubin 0.2 D AST 24 ALT 25 Alkaline Phosphatase 62 Total Protein 7.0 Albumin 3.7 Urine Color Lt. yellow Urine Appearance Clear Urine pH 7.0 D Urine Protein 2+ H Urine Glucose (UA) Negative Urine Ketones Negative Urine Blood Trace-lyse Urine Nitrite Negative Urine Bilirubin Negative Urine Urobilinogen 0.2 Ur Leukocyte Esterase Negative 07/04/17 06:42 RBC 3.54 L MCV 97.8 H MCHC 32.7 RDW 15.5 MPV 7.9 Neutrophils % 77.1 D Lymphocytes % 11.8 D Monocytes % 8.1 Eosinophils % 2.5 Basophils % 0.5 - Medications Given in the ED: ED Medications Discontinued Medications Generic Name Dose Route Start Last Admin Trade Name Alyssa PRN Reason Stop Dose Admin Sodium Chloride 500 ml 07/04/17 06:56 07/04/17 07:25 Normal Saline - IV 07/04/17 06:57 500 ml ONCE ONE Administration *DC/Admit/Observation/Transfer Diagnosis at time of Disposition: Altered mental state - Discharge Dispostion Admit: Yes - Referrals Procedure Note Procedure: 1x 6-0 polysorb suture in the patient's midline between lip and gum between the 2 mandibular incisors
[2017-07-04] MEDS ORDERED: NAPROXEN 500 MG TABLET (FP) PO ONE (10:18)
[2017-07-04] MEDS ORDERED: ACETAMINOPHEN 500 MG TABLET (FP) PO ONE (10:31)
[2017-07-04] MEDS ORDERED: ACETAMINOPHEN 325 MG TABLET (FP) ONE (11:38)
[2017-07-04] MEDS ORDERED: ACETAMINOPHEN 325 MG TABLET (FP) PO ONE (11:41)
[2017-07-04 15:23] VITALS: BMI 24.1
--- NOTE | 2017-07-04 16:30 | HP ---
DATE OF ADMISSION: 07/04/2017 CHIEF COMPLAINT: Altered mental status. This 89-year-old female with a history of dementia, coronary artery disease, status post CABG, history of sick sinus syndrome with pacemaker placement, history of diabetes mellitus, hypertension, hyperlipidemia, and TIA, presented to the emergency room after she was found wandering in the streets. The patient has baseline dementia with confusion, however, the family reports that the confusion was increased on this day, when the patient was found wandering and she was incoherent. Her family does not report any other complaints leading up to this event. There are no other associated symptoms. PAST MEDICAL HISTORY: As above. PAST SURGICAL HISTORY: As above. ALLERGIES: To CODEINE. HOME MEDICATIONS: Reviewed. REVIEW OF SYSTEMS: Unremarkable except for presenting complaint. FAMILY AND SOCIAL HISTORY: Unremarkable. PHYSICAL EXAMINATION: General: This is an elderly female who is currently confused. Vital Signs: Temperature 98.2 degrees Fahrenheit. Pulse 80 per minute, regular. Blood pressure initially 175/83 and later 140/80. Pulse initially 113, and later 90 beats per minute, regular. Respiratory rate 18 per minute, nonlabored. Oxygen saturation 98%. HEENT: Within normal limits. Neck: Supple, with no JVD. Chest: Clear to auscultation. Heart: Rate and rhythm regular. S1 and S2 heard. Abdomen: Soft. Nontender, nondistended, with normal bowel sounds. Extremities: No edema. Neurological: The patient was awake, alert, not oriented to time or place. She was oriented to person. Baseline cognitive changes of dementia were present; however, the patient is more confused than baseline. No gross focal neurological deficits were appreciated. LABORATORY EXAMINATION: WBC count 8.1, hemoglobin 11.3, hematocrit 34.6%, platelet count 291, sodium 138, potassium 4.1, BUN 22, creatinine 1.4. INR 0.96. Urine examination did not show significant WBCs. A CT scan of the head did not show any acute intracranial findings. CT scans of the cervical spine and facial bones also did not show any significant findings. A chest x-ray was pending at the time of this dictation. IMPRESSION: Altered mental status, history of dementia, coronary artery disease, sick sinus syndrome with pacemaker placement, diabetes mellitus, hypertension, hyperlipidemia, and TIA in the past, with no significant residual deficits. PLAN: The patient will be admitted and will be seen by Neurology. Further workup will be determined by the neurologist consultation. The patient's usual medications will be continued. Blood pressure and blood glucose will be monitored and treated accordingly. Further management will be according to the results of these interventions. JEWEL BOURGEOIS M.D. [id number]
[2017-07-04] MEDS: INSULIN SLIDING SCALE (NOVOLOG) 1 VIAL SQ SCH (16:41)
[2017-07-04] MEDS ORDERED: LOSARTAN POTASSIUM 50 MG TABLET (FP) PO ONE (18:00)
[2017-07-04] MEDS: ACETAMINOPHEN 325 MG TABLET (FP) PO PRN (18:06)
[2017-07-04] MEDS ORDERED: PT OWN MED DRAWER 7, Y5N ONE ×2 (22:28→23:14)
[2017-07-04] MEDS: CARVEDILOL 3.125 MG TABLET (FP) PO SCH (22:55)
[2017-07-04] MEDS: HALOPERIDOL 0.5 MG TABLET PO SCH (22:55)
[2017-07-04] MEDS: ROSUVASTATIN CA 5 MG TABLET (FP) PO SCH (22:55)
[2017-07-04] MEDS: CALCIUM (OYSTER SHELL) 500 MG TABLET (FP) PO SCH (22:55)
[2017-07-04] MEDS: FLUTICASONE PROP 0.05% 16 GM NASAL SPRAY NS SCH (23:13)
[2017-07-05] MEDS: ACETAMINOPHEN 325 MG TABLET (FP) PO PRN (00:42)
[2017-07-05] MEDS: INSULIN SLIDING SCALE (NOVOLOG) 1 VIAL SQ SCH ×3 (06:44→16:50)
[2017-07-05] MEDS: glipiZIDE-XL 2.5 MG TAB.ER.24 PO SCH (06:45)
[2017-07-05] MEDS: LEVOTHYROXINE NA 25 MCG TABLET (FP) PO SCH (06:45)
[2017-07-05 08:01] LABS: MCH 31.3 pg (25.7-33.7); MCHC 32.6 g/dl (32.0-36.0); PLATELET COUNT 274 K/MM3 (134-434); RDW 15.2 % (11.6-15.6); WHITE BLOOD COUNT 8.8 K/mm3 (4.0-10.0)
[2017-07-05 08:09] LABS: ALBUMIN 3.5 g/dl (3.4-5.0); ANION GAP 9 (8-16); CALCIUM 9.1 mg/dL (8.5-10.1); CO2 26 mmol/L (21-32); GLUCOSE,RANDOM 135 mg/dL (74-106)
[2017-07-05 08:13] LABS: ALK PHOS 63 U/L (45-117); BILIRUBIN,TOTAL 0.4 mg/dL (0.2-1.0); CREATININE 1.2 mg/dL (0.55-1.02); SGOT/AST 23 U/L (15-37); SGPT/ALT 23 U/L (12-78); TOT PROT 6.7 g/dl (6.4-8.2)
[2017-07-05] MEDS: POTASSIUM CHLORIDE TABS 10 MEQ TABLET.ER (FP) PO SCH (09:38)
[2017-07-05] MEDS: FLUTICASONE PROP 0.05% 16 GM NASAL SPRAY NS SCH ×2 (09:38→21:53)
[2017-07-05] MEDS: CALCIUM (OYSTER SHELL) 500 MG TABLET (FP) PO SCH ×2 (09:38→21:53)
[2017-07-05] MEDS: ENOXAPARIN NA (PORCINE) 30 MG/0.3 ML DISP.SYRIN SQ SCH (09:38)
[2017-07-05] MEDS: MULTIVITAMINS (DAILY MVI) TABLET (FP) PO SCH (09:38)
[2017-07-05] MEDS: CITALOPRAM HYDROBROMIDE 10 MG TABLET (FP) PO SCH (09:38)
[2017-07-05] MEDS: CARVEDILOL 3.125 MG TABLET (FP) PO SCH ×2 (09:39→21:53)
[2017-07-05] MEDS: HALOPERIDOL 0.5 MG TABLET PO SCH ×2 (09:39→21:54)
[2017-07-05] MEDS: ASPIRIN 81 MG CHEWABLE TABLETS PO SCH (09:39)
[2017-07-05] MEDS: LOSARTAN POTASSIUM 50 MG TABLET (FP) PO SCH (09:39)
[2017-07-05] MEDS ORDERED: DONEPEZIL HCL 5 MG TABLET (FP) PO SCH (10:00)
[2017-07-05] MEDS ORDERED: DARIFENACIN HYDROBROMIDE 7.5 MG PO SCH (10:00)
--- NOTE | 2017-07-05 10:28 | CON.NEURO ---
Consult - History of Present Illness History of Present Illness: Rogelio found wondering around HPI 89 year old female history of dementia, s/p pacemaker, sick sinus syndrome , cad s/p cabg, dm, htn hld . She was found wondering few minutes away from her house. Patient have some dried abrasion on her face. Today , during interview she was talking to her grand daughter. She told me she lives with her daughter. She denies any headahce or fever. She has no recollection what happened. She has been diagnosed with dementia. As per chart patient has been detiorating slowly over few months. No evidence of intracerebral trauma, fever or headhace . 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 Cardio/Vascular: Yes: CAD, HTN, Hyperlipdemia Rheumatology: Yes: Other (PMR-was on steroids in past) Endocrine: Yes: Diabetes Mellitus - Past Surgical History Past Surgical History: Yes: CABG (2007), Permanent Pacemaker - Alcohol/Substance Use Hx Alcohol Use: No - Smoking History Smoking history: Never smoked Have you smoked in the past 12 months: No Aproximately how many cigarettes per day: 0 - Social History ADL: Family Assistance History of Recent Travel: No Home Medications - Allergies Allergies/Adverse Reactions: Allergies Allergy/AdvReac Type Severity Reaction Status Date / Time No Known Drug Allergies Allergy Verified 07/04/17 17:38 codeine AdvReac Intermediate Nausea Verified 07/04/17 16:08 - Home Medications Home Medications: Ambulatory Orders Calcium (Oyster Shell) [Os-Vineet 500MG -] 500 mg PO BID 04/28/17 Carvedilol 3.125 mg PO BID 04/28/17 Citalopram Hydrobromide [Citalopram HBr] 20 mg PO DAILY 04/28/17 Darifenacin Hydrobromide [Darifenacin ER] 7.5 mg PO DAILY 04/28/17 Donepezil HCl 5 mg PO DAILY 04/28/17 Fluticasone Prop 0.05% Nasal [Flonase -] 1 - 2 spray NS BID 04/28/17 Glipizide [Glipizide ER] 2.5 mg PO DAILY 04/28/17 Haloperidol [Haldol -] 0.5 mg PO BID 04/28/17 Losartan Potassium 50 mg PO DAILY 04/28/17 Metformin HCl [Metformin HCl ER] 1,000 mg PO BID 04/28/17 Multivitamins [Multivit ([facility] Formulary)] 1 tab PO DAILY 04/28/17 Nitroglycerin 0.4 mg SL ASDIR 04/28/17 Aspirin [ASA -] 81 mg PO DAILY tab.chew 04/30/17 Levothyroxine [Synthroid -] 25 mcg PO DAILY #30 tablet 04/30/17 Family Disease History - Family Disease History Family Disease History: Heart Disease: Mother Physical Exam-Neuro Vital Signs: Vital Signs Temperature 98.8 F 07/05/17 07:27 Pulse Rate 69 07/05/17 07:27 Respiratory Rate 20 07/05/17 07:29 Blood Pressure 150/74 07/05/17 07:27 O2 Sat by Pulse Oximetry (%) 97 07/05/17 07:29 Labs: CBC, BMP 07/05/17 06:00 07/05/17 06:00 INR, PTT INR 0.96 (0.82-1.09) 07/04/17 06:42 Imaging - Results Cat Scan: Image Reviewed Assessment/Plan nathaly Mercado found wondering around HPI 89 year old female history of dementia, s/p pacemaker, sick sinus syndrome , cad s/p cabg, dm, htn hld . She was found wondering few minutes away from her house. Patient have some dried abrasion on her face. Today , during interview she was talking to her grand daughter. She told me she lives with her daughter. She denies any headahce or fever. She has no recollection what happened. She has been diagnosed with dementia. As per chart patient has been detiorating slowly over few months. No evidence of intracerebral trauma, fever or headhace . Past Medical History as above Allergy/AdvReac Type Severity Reaction Status Date / Time codeine AdvReac Intermediate Verified 07/04/17 06:16 Home Medications: Calcium ([place]yster Shell) [Os-Vineet 500MG -] 500 mg PO BID 04/28/17 Carvedilol 3.125 mg PO BID 04/28/17 Citalopram Hydrobromide [Citalopram HBr] 10 mg PO DAILY 04/28/17 Darifenacin Hydrobromide [Darifenacin ER] 7.5 mg PO DAILY 04/28/17 Donepezil HCl 5 mg PO DAILY 04/28/17 Fluticasone Prop 0.05% Nasal [Flonase -] 1 - 2 spray NS BID 04/28/17 Glipizide [Glipizide ER] 2.5 mg PO DAILY 04/28/17 Haloperidol [Haldol -] 0.5 mg PO BID 04/28/17 Losartan Potassium 50 mg PO DAILY 04/28/17 Metformin HCl [Metformin HCl ER] 1,000 mg PO BID 04/28/17 Multivitamins [Multivit ([facility] Formulary)] 1 tab PO DAILY 04/28/17 Nitroglycerin 0.4 mg SL ASDIR 04/28/17 Potassium Chloride [Klor-Con 10] 10 meq PO DAILY 04/28/17 Aspirin [ASA -] 81 mg PO DAILY tab.chew 04/30/17 Levothyroxine [Synthroid -] 25 mcg PO DAILY #30 tablet 04/30/17 Rosuvastatin [Crestor -] 5 mg PO HS #30 tablet 04/30/17 Neurological Examination Alert , follow command, she was able to tell me today is june, she is at [facility] and on seventh floor. she was talkign to jovanny grand daughter she lives with her daughter and as per pateint she able to carry out activities for her daily needs she denies any headhace pupils are reactive, no face asymmetry, face sensation is normal. moving all extremity and sensation is normal reflex are generalized diminished ct head reviewed radiologist suspected undertemined age possible infarct on right parieto occipital area. 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 Patient is on maximal medical therapy including aspirin and statin. Ct findings seems to be old . Plan-- at this time, she would not benefit from mri of brain or stroke workup ( carotid ultrasound) as she would not been a candidate for carotid enartectomy 2. continue apsirin and statin 3. continue supportive care 4. increase aricept 10 mg qhs and add namenda 5 mg po bid 5. avoid anticholinergic medication
--- NOTE | 2017-07-05 20:21 | PN ---
Progress Note, Physician Chief Complaint: Behavior better - Current Medication List Current Medications: Active Medications Acetaminophen (Tylenol -) 650 mg PO Q6H PRN PRN Reason: PAIN Last Admin: 07/05/17 00:42 Dose: 650 mg Aspirin (Asa -) 81 mg PO DAILY [facility] Last Admin: 07/05/17 09:39 Dose: 81 mg Calcium Carbonate (Os-Vineet 500mg -) 500 mg PO BID [facility] Last Admin: 07/05/17 09:38 Dose: 500 mg Carvedilol (Coreg -) 3.125 mg PO BID [facility] Last Admin: 07/05/17 09:39 Dose: 3.125 mg Citalopram Hydrobromide (Celexa -) 10 mg PO DAILY [facility] Last Admin: 07/05/17 09:38 Dose: 10 mg Donepezil HCl (Aricept -) 10 mg PO DAILY [facility] Enoxaparin Sodium (Lovenox -) 30 mg SQ DAILY [facility] Last Admin: 07/05/17 09:38 Dose: 30 mg Fluticasone Propionate (Flonase -) 1 spray NS BID [facility] Last Admin: 07/05/17 09:38 Dose: 1 spray Glipizide (Glucotrol Xl -) 2.5 mg PO ACBK [facility] Last Admin: 07/05/17 06:45 Dose: 2.5 mg Haloperidol (Haldol -) 0.5 mg PO BID [facility] Last Admin: 07/05/17 09:39 Dose: 0.5 mg Insulin Aspart (Novolog Vial Sliding Scale -) 1 vial SQ TIDAC [facility] PRN Reason: Protocol Last Admin: 07/05/17 16:50 Dose: Not Given Levothyroxine Sodium (Synthroid -) 25 mcg PO DAILY@0700 [facility] Last Admin: 07/05/17 06:45 Dose: 25 mcg Losartan Potassium (Cozaar -) 50 mg PO DAILY [facility] Last Admin: 07/05/17 09:39 Dose: 50 mg Memantine (Namenda -) 5 mg PO BID [facility] Multivitamins/Minerals/Vitamin C (Tab-A-Vit -) 1 tab PO DAILY [facility] Last Admin: 07/05/17 09:38 Dose: 1 tab Non-Formulary Medication (Darifenacin Hydrobromide [Darifenacin Er]) 7.5 mg PO DAILY [facility] Potassium Chloride (K-Dur -) 10 meq PO DAILY [facility] Last Admin: 07/05/17 09:38 Dose: 10 meq Rosuvastatin Calcium (Crestor -) 5 mg PO HS [facility] Last Admin: 07/04/17 22:55 Dose: 5 mg - Objective Vital Signs: Vital Signs Temperature 99.3 F 07/05/17 19:23 Pulse Rate 69 07/05/17 19:23 Respiratory Rate 20 07/05/17 19:23 Blood Pressure 152/81 07/05/17 19:23 O2 Sat by Pulse Oximetry (%) 97 07/05/17 07:29 Constitutional: Yes: No Distress Neck: Yes: Supple Cardiovascular: Yes: Regular Rate and Rhythm, S1, S2 Respiratory: Yes: CTA Bilaterally Gastrointestinal: Yes: Normal Bowel Sounds, Soft Neurological: Yes: Alert, Confusion. No: Loss of Sensation ...Motor Strength: WNL Labs: CBC, BMP 07/05/17 06:00 07/05/17 06:00 INR, PTT INR 0.96 (0.82-1.09) 07/04/17 06:42 Problem List - Problems (1) Altered mental state Assessment/Plan: Improving, seen by neuro, rec supportive care, pt may need rehab Code(s): R41.82 - ALTERED MENTAL STATUS, UNSPECIFIED (2) Diabetes Assessment/Plan: Controlled Code(s): E11.9 - TYPE 2 DIABETES MELLITUS WITHOUT COMPLICATIONS Qualifiers: Diabetes mellitus type: type 2
[2017-07-05] MEDS: ROSUVASTATIN CA 5 MG TABLET (FP) PO SCH (21:53)
[2017-07-05] MEDS: MEMANTINE HCL 5 MG TABLET (UD) PO SCH (21:53)
[2017-07-06] MEDS: INSULIN SLIDING SCALE (NOVOLOG) 1 VIAL SQ SCH ×3 (06:31→17:22)
[2017-07-06] MEDS: glipiZIDE-XL 2.5 MG TAB.ER.24 PO SCH (06:32)
[2017-07-06] MEDS: LEVOTHYROXINE NA 25 MCG TABLET (FP) PO SCH (06:32)
[2017-07-06 07:49] LABS: MCH 31.5 pg (25.7-33.7); MCHC 32.5 g/dl (32.0-36.0); MEAN CELL VOLUME 96.8 fl (80-96); PLATELET COUNT 259 K/MM3 (134-434); RDW 14.9 % (11.6-15.6); WHITE BLOOD COUNT 6.1 K/mm3 (4.0-10.0)
[2017-07-06 08:11] LABS: ALBUMIN 3.1 g/dl (3.4-5.0); ANION GAP 9 (8-16); CO2 25 mmol/L (21-32)
[2017-07-06 08:17] LABS: ALK PHOS 59 U/L (45-117); BILIRUBIN,TOTAL 0.4 mg/dL (0.2-1.0); CREATININE 1.3 mg/dL (0.55-1.02); GLUCOSE,RANDOM 119 mg/dL (74-106); SGOT/AST 19 U/L (15-37); SGPT/ALT 23 U/L (12-78); TOT PROT 6.3 g/dl (6.4-8.2)
[2017-07-06] MEDS ORDERED: PT OWN MED DRAWER 7, Y5N ONE (10:44)
[2017-07-06] MEDS: FLUTICASONE PROP 0.05% 16 GM NASAL SPRAY NS SCH ×2 (10:44→21:05)
[2017-07-06] MEDS: ASPIRIN 81 MG CHEWABLE TABLETS PO SCH (10:45)
[2017-07-06] MEDS: MEMANTINE HCL 5 MG TABLET (UD) PO SCH ×2 (10:45→21:04)
[2017-07-06] MEDS: CALCIUM (OYSTER SHELL) 500 MG TABLET (FP) PO SCH ×2 (10:45→21:04)
[2017-07-06] MEDS: MULTIVITAMINS (DAILY MVI) TABLET (FP) PO SCH (10:45)
[2017-07-06] MEDS: CARVEDILOL 3.125 MG TABLET (FP) PO SCH ×2 (10:45→21:05)
[2017-07-06] MEDS: DONEPEZIL HCL 10 MG TABLET (FP) PO SCH (10:45)
[2017-07-06] MEDS: ENOXAPARIN NA (PORCINE) 30 MG/0.3 ML DISP.SYRIN SQ SCH (10:45)
[2017-07-06] MEDS: CITALOPRAM HYDROBROMIDE 10 MG TABLET (FP) PO SCH (10:45)
[2017-07-06] MEDS: HALOPERIDOL 0.5 MG TABLET PO SCH ×2 (10:46→21:04)
[2017-07-06] MEDS: LOSARTAN POTASSIUM 50 MG TABLET (FP) PO SCH (10:46)
[2017-07-06] MEDS: POTASSIUM CHLORIDE TABS 10 MEQ TABLET.ER (FP) PO SCH (10:46)
[2017-07-06] MEDS ORDERED: INSULIN (NOVOLOG) ASPART 100 UNITS/ML 10ML VIAL ONE (11:57)
[2017-07-06] MEDS: ACETAMINOPHEN 325 MG TABLET (FP) PO PRN ×2 (15:11→21:05)
--- NOTE | 2017-07-06 17:27 | PN ---
Progress Note, Physician Chief Complaint: Feels better - Current Medication List Current Medications: Active Medications Acetaminophen (Tylenol -) 650 mg PO Q6H PRN PRN Reason: PAIN Last Admin: 07/06/17 15:11 Dose: 650 mg Aspirin (Asa -) 81 mg PO DAILY [facility] Last Admin: 07/06/17 10:45 Dose: 81 mg Calcium Carbonate (Os-Vineet 500mg -) 500 mg PO BID [facility] Last Admin: 07/06/17 10:45 Dose: 500 mg Carvedilol (Coreg -) 3.125 mg PO BID [facility] Last Admin: 07/06/17 10:45 Dose: 3.125 mg Citalopram Hydrobromide (Celexa -) 10 mg PO DAILY [facility] Last Admin: 07/06/17 10:45 Dose: 10 mg Donepezil HCl (Aricept -) 10 mg PO DAILY [facility] Last Admin: 07/06/17 10:45 Dose: 10 mg Enoxaparin Sodium (Lovenox -) 30 mg SQ DAILY [facility] Last Admin: 07/06/17 10:45 Dose: 30 mg Fluticasone Propionate (Flonase -) 1 spray NS BID [facility] Last Admin: 07/06/17 10:44 Dose: 1 spray Glipizide (Glucotrol Xl -) 2.5 mg PO ACBK [facility] Last Admin: 07/06/17 06:32 Dose: 2.5 mg Haloperidol (Haldol -) 0.5 mg PO BID [facility] Last Admin: 07/06/17 10:46 Dose: 0.5 mg Insulin Aspart (Novolog Vial Sliding Scale -) 1 vial SQ TIDAC [facility] PRN Reason: Protocol Last Admin: 07/06/17 17:22 Dose: Not Given Levothyroxine Sodium (Synthroid -) 25 mcg PO DAILY@0700 [facility] Last Admin: 07/06/17 06:32 Dose: 25 mcg Losartan Potassium (Cozaar -) 50 mg PO DAILY [facility] Last Admin: 07/06/17 10:46 Dose: 50 mg Memantine (Namenda -) 5 mg PO BID [facility] Last Admin: 07/06/17 10:45 Dose: 5 mg Multivitamins/Minerals/Vitamin C (Tab-A-Vit -) 1 tab PO DAILY [facility] Last Admin: 07/06/17 10:45 Dose: 1 tab Non-Formulary Medication (Darifenacin Hydrobromide [Darifenacin Er]) 7.5 mg PO DAILY [facility] Potassium Chloride (K-Dur -) 10 meq PO DAILY [facility] Last Admin: 07/06/17 10:46 Dose: 10 meq Rosuvastatin Calcium (Crestor -) 5 mg PO HS [facility] Last Admin: 07/05/17 21:53 Dose: 5 mg - Objective Vital Signs: Vital Signs Temperature 98.4 F 07/06/17 14:03 Pulse Rate 71 07/06/17 14:03 Respiratory Rate 20 07/06/17 14:03 Blood Pressure 153/84 07/06/17 14:03 O2 Sat by Pulse Oximetry (%) 95 07/06/17 09:00 Constitutional: Yes: No Distress Neck: Yes: Supple Cardiovascular: Yes: Regular Rate and Rhythm, S1, S2 Respiratory: Yes: CTA Bilaterally Gastrointestinal: Yes: Normal Bowel Sounds, Soft Neurological: Yes: Alert. No: Loss of Sensation ...Motor Strength: WNL Labs: CBC, BMP 07/06/17 06:00 07/06/17 06:00 INR, PTT INR 0.96 (0.82-1.09) 07/04/17 06:42 Problem List - Problems (1) Altered mental state Assessment/Plan: Improving, walked with PT today Code(s): R41.82 - ALTERED MENTAL STATUS, UNSPECIFIED Qualifiers: Altered mental status type: unspecified Qualified Code(s): R41.82 - Altered mental status, unspecified (2) Diabetes Assessment/Plan: Controlled Code(s): E11.9 - TYPE 2 DIABETES MELLITUS WITHOUT COMPLICATIONS Qualifiers: Diabetes mellitus type: type 2
[2017-07-06] MEDS: ROSUVASTATIN CA 5 MG TABLET (FP) PO SCH (21:04)
[2017-07-07] MEDS: glipiZIDE-XL 2.5 MG TAB.ER.24 PO SCH (06:30)
[2017-07-07] MEDS: INSULIN SLIDING SCALE (NOVOLOG) 1 VIAL SQ SCH ×3 (06:32→17:15)
[2017-07-07] MEDS: LEVOTHYROXINE NA 25 MCG TABLET (FP) PO SCH (06:32)
[2017-07-07 07:27] LABS: MCH 31.9 pg (25.7-33.7); MCHC 32.9 g/dl (32.0-36.0); MEAN CELL VOLUME 96.8 fl (80-96); MEAN PLT VOLUME 7.8 fl (7.5-11.1); PLATELET COUNT 261 K/MM3 (134-434); RDW 14.7 % (11.6-15.6); WHITE BLOOD COUNT 6.3 K/mm3 (4.0-10.0)
[2017-07-07 08:05] LABS: ALBUMIN 3.2 g/dl (3.4-5.0); ALK PHOS 59 U/L (45-117); ANION GAP 7 (8-16); BILIRUBIN,TOTAL 0.6 mg/dL (0.2-1.0); CALCIUM 8.9 mg/dL (8.5-10.1); CO2 27 mmol/L (21-32); CREATININE 1.1 mg/dL (0.55-1.02); GLUCOSE,RANDOM 147 mg/dL (74-106); SGOT/AST 19 U/L (15-37); SGPT/ALT 24 U/L (12-78); TOT PROT 6.3 g/dl (6.4-8.2)
--- NOTE | 2017-07-07 09:59 | PN ---
Progress Note, Physician Chief Complaint: wandering on street, fall History of Present Illness: found on street wandering, after fall with facial abrasions - Current Medication List Current Medications: Active Medications Acetaminophen (Tylenol -) 650 mg PO Q6H PRN PRN Reason: PAIN Last Admin: 07/06/17 21:05 Dose: 650 mg Aspirin (Asa -) 81 mg PO DAILY [facility] Last Admin: 07/06/17 10:45 Dose: 81 mg Calcium Carbonate (Os-Vineet 500mg -) 500 mg PO BID [facility] Last Admin: 07/06/17 21:04 Dose: 500 mg Carvedilol (Coreg -) 3.125 mg PO BID [facility] Last Admin: 07/06/17 21:05 Dose: 3.125 mg Citalopram Hydrobromide (Celexa -) 10 mg PO DAILY [facility] Last Admin: 07/06/17 10:45 Dose: 10 mg Donepezil HCl (Aricept -) 10 mg PO DAILY [facility] Last Admin: 07/06/17 10:45 Dose: 10 mg Enoxaparin Sodium (Lovenox -) 30 mg SQ DAILY [facility] Last Admin: 07/06/17 10:45 Dose: 30 mg Fluticasone Propionate (Flonase -) 1 spray NS BID [facility] Last Admin: 07/06/17 21:05 Dose: 1 spray Glipizide (Glucotrol Xl -) 2.5 mg PO ACBK [facility] Last Admin: 07/07/17 06:30 Dose: 2.5 mg Haloperidol (Haldol -) 0.5 mg PO BID [facility] Last Admin: 07/06/17 21:04 Dose: 0.5 mg Insulin Aspart (Novolog Vial Sliding Scale -) 1 vial SQ TIDAC [facility] PRN Reason: Protocol Last Admin: 07/07/17 06:32 Dose: Not Given Levothyroxine Sodium (Synthroid -) 25 mcg PO DAILY@0700 [facility] Last Admin: 07/07/17 06:32 Dose: 25 mcg Losartan Potassium (Cozaar -) 50 mg PO DAILY [facility] Last Admin: 07/06/17 10:46 Dose: 50 mg Memantine (Namenda -) 5 mg PO BID [facility] Last Admin: 07/06/17 21:04 Dose: 5 mg Multivitamins/Minerals/Vitamin C (Tab-A-Vit -) 1 tab PO DAILY [facility] Last Admin: 07/06/17 10:45 Dose: 1 tab Non-Formulary Medication (Darifenacin Hydrobromide [Darifenacin Er]) 7.5 mg PO DAILY [facility] Potassium Chloride (K-Dur -) 10 meq PO DAILY [facility] Last Admin: 07/06/17 10:46 Dose: 10 meq Rosuvastatin Calcium (Crestor -) 5 mg PO HS [facility] Last Admin: 07/06/17 21:04 Dose: 5 mg - Objective Vital Signs: Vital Signs Temperature 98 F 07/07/17 06:00 Pulse Rate 68 07/07/17 06:00 Respiratory Rate 20 07/07/17 06:00 Blood Pressure 123/74 07/07/17 06:00 O2 Sat by Pulse Oximetry (%) 96 07/06/17 21:00 Constitutional: Yes: No Distress, Calm Eyes: Yes: EOM Intact HENT: Yes: Other Neck: Yes: Supple Cardiovascular: Yes: Regular Rate and Rhythm Respiratory: Yes: Regular, CTA Bilaterally Genitourinary: Yes: WNL Musculoskeletal: Yes: Joint Stiffness Extremities: Yes: WNL Edema: No Peripheral Pulses WNL: Yes Integumentary: Yes: Other (scabs over nose, upper lip and chin, healing, suture and wound in inner lip) Neurological: Yes: WNL, Alert, Oriented Psychiatric: Yes: WNL Labs: CBC, BMP 07/07/17 06:00 07/07/17 06:00 INR, PTT INR 0.96 (0.82-1.09) 07/04/17 06:42 Problem List - Problems (1) Altered mental state Code(s): R41.82 - ALTERED MENTAL STATUS, UNSPECIFIED Qualifiers: Altered mental status type: disorientation Qualified Code(s): R41.0 - Disorientation, unspecified (2) CAD (coronary artery disease) Code(s): I25.10 - ATHSCL HEART DISEASE OF [place] CORONARY ARTERY W/O ANG PCTRS Qualifiers: Coronary Disease-Associated Artery/Lesion type: [place] artery [place] vs. transplanted heart: [place] heart Associated angina: without angina Qualified Code(s): I25.10 - Atherosclerotic heart disease of [place] coronary artery without angina pectoris (3) Diabetes Code(s): E11.9 - TYPE 2 DIABETES MELLITUS WITHOUT COMPLICATIONS Qualifiers: Diabetes mellitus type: type 2 (4) Dementia Code(s): F03.90 - UNSPECIFIED DEMENTIA WITHOUT BEHAVIORAL DISTURBANCE Qualifiers: Dementia type: Alzheimer's disease Dementia behavioral disturbance: without behavioral disturbance Qualified Code(s): - Assessment/Plan continue physical therapy medications were adjusted short term rehab evaluation d/w daughter and patient at bedside
[2017-07-07] MEDS ORDERED: INSULIN (NOVOLOG) ASPART 100 UNITS/ML 10ML VIAL ONE (12:18)
[2017-07-07] MEDS: LOSARTAN POTASSIUM 50 MG TABLET (FP) PO SCH (12:21)
[2017-07-07] MEDS: MULTIVITAMINS (DAILY MVI) TABLET (FP) PO SCH (12:21)
[2017-07-07] MEDS: DONEPEZIL HCL 10 MG TABLET (FP) PO SCH (12:21)
[2017-07-07] MEDS: CALCIUM (OYSTER SHELL) 500 MG TABLET (FP) PO SCH ×2 (12:21→22:11)
[2017-07-07] MEDS: CARVEDILOL 3.125 MG TABLET (FP) PO SCH ×2 (12:21→22:11)
[2017-07-07] MEDS: POTASSIUM CHLORIDE TABS 10 MEQ TABLET.ER (FP) PO SCH (12:21)
[2017-07-07] MEDS: MEMANTINE HCL 5 MG TABLET (UD) PO SCH ×2 (12:21→22:12)
[2017-07-07] MEDS: HALOPERIDOL 0.5 MG TABLET PO SCH ×2 (12:21→22:12)
[2017-07-07] MEDS: ENOXAPARIN NA (PORCINE) 30 MG/0.3 ML DISP.SYRIN SQ SCH (12:21)
[2017-07-07] MEDS: CITALOPRAM HYDROBROMIDE 10 MG TABLET (FP) PO SCH (12:21)
[2017-07-07] MEDS: FLUTICASONE PROP 0.05% 16 GM NASAL SPRAY NS SCH ×2 (12:22→22:12)
[2017-07-07] MEDS: ASPIRIN 81 MG CHEWABLE TABLETS PO SCH (12:22)
[2017-07-07] MEDS: ACETAMINOPHEN 325 MG TABLET (FP) PO PRN (12:29)
[2017-07-07] MEDS: ROSUVASTATIN CA 5 MG TABLET (FP) PO SCH (22:11)
[2017-07-08] MEDS: glipiZIDE-XL 2.5 MG TAB.ER.24 PO SCH (06:33)
[2017-07-08] MEDS: INSULIN SLIDING SCALE (NOVOLOG) 1 VIAL SQ SCH ×3 (06:33→18:03)
[2017-07-08] MEDS: LEVOTHYROXINE NA 25 MCG TABLET (FP) PO SCH (06:33)
--- NOTE | 2017-07-08 08:12 | PN ---
Progress Note, Physician Chief Complaint: participating in PT with contact guard, c/o bilateral knee pains. History of Present Illness: found on street wandering, after fall with facial abrasions - Current Medication List Current Medications: Active Medications Acetaminophen (Tylenol -) 650 mg PO Q6H PRN PRN Reason: PAIN Last Admin: 07/07/17 12:29 Dose: 650 mg Aspirin (Asa -) 81 mg PO DAILY [facility] Last Admin: 07/07/17 12:22 Dose: 81 mg Bacitracin (Bacitracin -) 1 applic TP BID [facility] Calcium Carbonate (Os-Vineet 500mg -) 500 mg PO BID [facility] Last Admin: 07/07/17 22:11 Dose: 500 mg Carvedilol (Coreg -) 3.125 mg PO BID [facility] Last Admin: 07/07/17 22:11 Dose: 3.125 mg Citalopram Hydrobromide (Celexa -) 10 mg PO DAILY [facility] Last Admin: 07/07/17 12:21 Dose: 10 mg Donepezil HCl (Aricept -) 10 mg PO DAILY [facility] Last Admin: 07/07/17 12:21 Dose: 10 mg Enoxaparin Sodium (Lovenox -) 30 mg SQ DAILY [facility] Last Admin: 07/07/17 12:21 Dose: 30 mg Fluticasone Propionate (Flonase -) 1 spray NS BID [facility] Last Admin: 07/07/17 22:12 Dose: 1 spray Glipizide (Glucotrol Xl -) 2.5 mg PO ACBK [facility] Last Admin: 07/08/17 06:33 Dose: 2.5 mg Haloperidol (Haldol -) 0.5 mg PO BID [facility] Last Admin: 07/07/17 22:12 Dose: 0.5 mg Insulin Aspart (Novolog Vial Sliding Scale -) 1 vial SQ TIDAC [facility] PRN Reason: Protocol Last Admin: 07/08/17 06:33 Dose: Not Given Levothyroxine Sodium (Synthroid -) 25 mcg PO DAILY@0700 [facility] Last Admin: 07/08/17 06:33 Dose: 25 mcg Losartan Potassium (Cozaar -) 50 mg PO DAILY [facility] Last Admin: 07/07/17 12:21 Dose: 50 mg Memantine (Namenda -) 5 mg PO BID [facility] Last Admin: 07/07/17 22:12 Dose: 5 mg Multivitamins/Minerals/Vitamin C (Tab-A-Vit -) 1 tab PO DAILY [facility] Last Admin: 07/07/17 12:21 Dose: 1 tab Non-Formulary Medication (Darifenacin Hydrobromide [Darifenacin Er]) 7.5 mg PO DAILY [facility] Potassium Chloride (K-Dur -) 10 meq PO DAILY [facility] Last Admin: 07/07/17 12:21 Dose: 10 meq Rosuvastatin Calcium (Crestor -) 5 mg PO HS [facility] Last Admin: 07/07/17 22:11 Dose: 5 mg - Objective Vital Signs: Vital Signs Temperature 98.3 F 07/08/17 06:00 Pulse Rate 69 07/08/17 06:00 Respiratory Rate 18 07/08/17 06:00 Blood Pressure 151/73 07/08/17 06:00 O2 Sat by Pulse Oximetry (%) 97 07/07/17 21:00 Constitutional: Yes: No Distress, Calm Eyes: Yes: EOM Intact HENT: Yes: Normocephalic Neck: Yes: Trachea Midline Cardiovascular: Yes: Regular Rate and Rhythm Respiratory: Yes: CTA Bilaterally Gastrointestinal: Yes: Normal Bowel Sounds, Soft Edema: No Peripheral Pulses WNL: Yes Neurological: Yes: WNL Psychiatric: Yes: Oriented (oriented to place person, month and year) Labs: CBC, BMP 07/07/17 06:00 07/07/17 06:00 INR, PTT INR 0.96 (0.82-1.09) 07/04/17 06:42 Problem List - Problems (1) Altered mental state Code(s): R41.82 - ALTERED MENTAL STATUS, UNSPECIFIED Qualifiers: Altered mental status type: disorientation Qualified Code(s): R41.0 - Disorientation, unspecified (2) CAD (coronary artery disease) Code(s): I25.10 - ATHSCL HEART DISEASE OF [place] CORONARY ARTERY W/O ANG PCTRS Qualifiers: Coronary Disease-Associated Artery/Lesion type: [place] artery [place] vs. transplanted heart: [place] heart Associated angina: without angina Qualified Code(s): I25.10 - Atherosclerotic heart disease of [place] coronary artery without angina pectoris (3) Diabetes Code(s): E11.9 - TYPE 2 DIABETES MELLITUS WITHOUT COMPLICATIONS Qualifiers: Diabetes mellitus type: type 2 (4) Dementia Code(s): F03.90 - UNSPECIFIED DEMENTIA WITHOUT BEHAVIORAL DISTURBANCE Qualifiers: Dementia type: Alzheimer's disease Dementia behavioral disturbance: without behavioral disturbance Assessment/Plan continue physical therapy check knee xrays short term rehab evaluation dc planning
[2017-07-08] MEDS: MEMANTINE HCL 5 MG TABLET (UD) PO SCH ×2 (10:55→22:56)
[2017-07-08] MEDS: ENOXAPARIN NA (PORCINE) 30 MG/0.3 ML DISP.SYRIN SQ SCH (10:56)
[2017-07-08] MEDS: MULTIVITAMINS (DAILY MVI) TABLET (FP) PO SCH (10:56)
[2017-07-08] MEDS: CARVEDILOL 3.125 MG TABLET (FP) PO SCH ×2 (10:56→22:56)
[2017-07-08] MEDS: CALCIUM (OYSTER SHELL) 500 MG TABLET (FP) PO SCH ×2 (10:56→22:56)
[2017-07-08] MEDS: LOSARTAN POTASSIUM 50 MG TABLET (FP) PO SCH (10:56)
[2017-07-08] MEDS: DONEPEZIL HCL 10 MG TABLET (FP) PO SCH (10:56)
[2017-07-08] MEDS: ASPIRIN 81 MG CHEWABLE TABLETS PO SCH (10:56)
[2017-07-08] MEDS: CITALOPRAM HYDROBROMIDE 10 MG TABLET (FP) PO SCH (10:56)
[2017-07-08] MEDS: POTASSIUM CHLORIDE TABS 10 MEQ TABLET.ER (FP) PO SCH (10:56)
[2017-07-08] MEDS: BACITRACIN 15 GM TUBE TOPICAL OINTMENT TP SCH ×2 (10:57→22:57)
[2017-07-08] MEDS ORDERED: PT OWN MED DRAWER 7, Y5N ONE (11:02)
[2017-07-08] MEDS: HALOPERIDOL 0.5 MG TABLET PO SCH ×2 (11:02→22:58)
[2017-07-08] MEDS: FLUTICASONE PROP 0.05% 16 GM NASAL SPRAY NS SCH ×2 (11:03→22:57)
[2017-07-08] MEDS: ACETAMINOPHEN 325 MG TABLET (FP) PO PRN (12:52)
[2017-07-08] MEDS: ROSUVASTATIN CA 5 MG TABLET (FP) PO SCH (22:56)
[2017-07-09 06:11] VITALS: PULSE 63
[2017-07-09] MEDS: INSULIN SLIDING SCALE (NOVOLOG) 1 VIAL SQ SCH ×2 (06:46→11:11)
[2017-07-09] MEDS: LEVOTHYROXINE NA 25 MCG TABLET (FP) PO SCH (06:46)
[2017-07-09] MEDS: glipiZIDE-XL 2.5 MG TAB.ER.24 PO SCH (06:47)
--- NOTE | 2017-07-09 08:06 | DS ---
Physical Examination Vital Signs: Vital Signs Temperature 98.2 F 07/09/17 06:00 Pulse Rate 63 07/09/17 06:00 Respiratory Rate 18 07/09/17 06:00 Blood Pressure 152/75 07/09/17 06:00 O2 Sat by Pulse Oximetry (%) 96 07/08/17 21:00 Constitutional: Yes: No Distress Eyes: Yes: EOM Intact HENT: Yes: Normocephalic Neck: Yes: Trachea Midline Cardiovascular: Yes: Regular Rate and Rhythm Respiratory: Yes: CTA Bilaterally Gastrointestinal: Yes: Normal Bowel Sounds, Soft Musculoskeletal: Yes: WNL Extremities: Yes: WNL Edema: No Peripheral Pulses WNL: Yes Neurological: Yes: WNL, Oriented (to place, self and month/year) Psychiatric: Yes: WNL Labs: CBC, BMP 07/07/17 06:00 07/07/17 06:00 Discharge Summary Reason For Visit: ALTERED MENTAL STATE Current Active Problems Altered mental state (Acute) Dementia (Acute) Hospital Course: admitted for wandering and fall on street early am. head, C spine CT were negative for acute injury, xray of elbows and knees showed no fracture. suffered injury to nose, lips with healing abrasion. seen by neurology diagnosed with Alzheimer/vascular dementia. namenda added to regimen. participating in PT however still unsteady and weak with contact guard, would benefit from short term rehab. Condition: Fair - Instructions Referrals: Luisito Durán MD [Staff Physician] - Tee Crouch MD [Primary Care Provider] - Disposition: [facility] - Home Medications Comprehensive Discharge Medication List: Ambulatory Orders Calcium (Oyster Shell) [Os-Vineet 500MG -] 500 mg PO BID 04/28/17 Carvedilol 3.125 mg PO BID 04/28/17 Citalopram Hydrobromide [Citalopram HBr] 20 mg PO DAILY 04/28/17 Glipizide [Glipizide ER] 2.5 mg PO DAILY 04/28/17 Haloperidol [Haldol -] 0.5 mg PO BID 04/28/17 Losartan Potassium 50 mg PO DAILY 04/28/17 Metformin HCl [Metformin HCl ER] 1,000 mg PO BID 04/28/17 Multivitamins [Multivit ([facility] Formulary)] 1 tab PO DAILY 04/28/17 Nitroglycerin 0.4 mg SL ASDIR 04/28/17 Aspirin [ASA -] 81 mg PO DAILY tab.chew 04/30/17 Levothyroxine [Synthroid -] 25 mcg PO DAILY #30 tablet 04/30/17 Acetaminophen [Tylenol .Regular Strength -] 650 mg PO Q6H PRN #0 tablet Bacitracin - [Bacitracin Topical Ointment -] 1 applic TP BID tube 07/09/17 Donepezil HCl [Aricept -] 10 mg PO DAILY tablet 07/09/17 Memantine HCl [Namenda -] 5 mg PO BID tab 07/09/17 Potassium Chloride [K-Dur -] 10 meq PO DAILY tab 07/09/17 Rosuvastatin [Crestor -] 5 mg PO HS tablet 07/09/17
[2017-07-09 10:20] VITALS: BP 125/68; TEMP 98.3
[2017-07-09] MEDS ORDERED: INSULIN (NOVOLOG) ASPART 100 UNITS/ML 10ML VIAL ONE (10:57)
[2017-07-09] MEDS ORDERED: PT OWN MED DRAWER 7, Y5N ONE (11:00)
[2017-07-09] MEDS: ASPIRIN 81 MG CHEWABLE TABLETS PO SCH (11:07)
[2017-07-09] MEDS: MEMANTINE HCL 5 MG TABLET (UD) PO SCH (11:07)
[2017-07-09] MEDS: LOSARTAN POTASSIUM 50 MG TABLET (FP) PO SCH (11:07)
[2017-07-09] MEDS: CALCIUM (OYSTER SHELL) 500 MG TABLET (FP) PO SCH (11:07)
[2017-07-09] MEDS: POTASSIUM CHLORIDE TABS 10 MEQ TABLET.ER (FP) PO SCH (11:08)
[2017-07-09] MEDS: MULTIVITAMINS (DAILY MVI) TABLET (FP) PO SCH (11:08)
[2017-07-09] MEDS: DONEPEZIL HCL 10 MG TABLET (FP) PO SCH (11:08)
[2017-07-09] MEDS: CITALOPRAM HYDROBROMIDE 10 MG TABLET (FP) PO SCH (11:08)
[2017-07-09] MEDS: ENOXAPARIN NA (PORCINE) 30 MG/0.3 ML DISP.SYRIN SQ SCH (11:08)
[2017-07-09] MEDS: CARVEDILOL 3.125 MG TABLET (FP) PO SCH (11:08)
[2017-07-09] MEDS: HALOPERIDOL 0.5 MG TABLET PO SCH (11:09)
[2017-07-09] MEDS: FLUTICASONE PROP 0.05% 16 GM NASAL SPRAY NS SCH (11:09)
[2017-07-09] MEDS: BACITRACIN 15 GM TUBE TOPICAL OINTMENT TP SCH (11:10)
== END 2017-07-09 13:24 | DRG 57 ==
LOC: JER 06:01 → JERBED 13:00 → OBSVTOIN 13:06 → J7W 15:37
PROVIDERS: ADMIT Internal Medicine; ATTEND Internal Medicine
DX: G30.9 Alzheimer's disease, unspecified (principal); F01.50 Vascular dementia, unspecified severity, without behavioral disturbance, psychotic disturbance, mood disturbance, and anxiety; S80.212A Abrasion, left knee, initial encounter; S80.211A Abrasion, right knee, initial encounter; S00.31XA Abrasion of nose, initial encounter; S00.81XA Abrasion of other part of head, initial encounter; Z79.84 Long term (current) use of oral hypoglycemic drugs; I25.10 Atherosclerotic heart disease of native coronary artery without angina pectoris; Z95.1 Presence of aortocoronary bypass graft; Z95.0 Presence of cardiac pacemaker; E78.5 Hyperlipidemia, unspecified; E11.9 Type 2 diabetes mellitus without complications; I10 Essential (primary) hypertension; Z86.73 Personal history of transient ischemic attack (TIA), and cerebral infarction without residual deficits; W19.XXXA Unspecified fall, initial encounter; Y93.89 Activity, other specified; Y92.488 Other paved roadways as the place of occurrence of the external cause; Y99.8 Other external cause status
CPT/HCPCS: 36415; 70450-TC; 70486-TC; 72125-TC; 73070-TC-LT; 73070-TC-RT; 73560-TC-LT; 73560-TC-RT; 80053; 81003; 81015; 85025; 85027; 85610; 87086; 97116-GP; 97162-GP; 99283-25; G0378